=== PATIENT | female | born 1960 | race Caucasian/White ===

== ENCOUNTER → 2018-09-14 09:07 | Outpatient (CLI) | payer OTHER, BC, SELFPAY ==
[2018-09-14 11:19] LABS: ALB/GLOB Ratio 0.9 RATIO (0.9-2.4); AST(SGOT) 71 U/L (15-37); Alanine Aminotransfer ALT/SGPT 135 U/L (13-56); Albumin, Serum 3.8 g/dL (3.2-5.0); Alkaline Phosphatase 71 U/L (45-117); Anion Gap 7 (5-15); BUN 14 mg/dL (7-18); BUN/Creat Ratio 15.9 RATIO (10-20); Calcium,Total 9.4 mg/dL (8.5-10.1); Chloride 103 mmol/L (98-107); Creatinine, Serum 0.88 mg/dL (0.55-1.02); EST Glomerular Filtration Rate 70 mL/min (>60); Est Glom Filt Rate - Afr Amer 84 mL/min (>60); Globulin 4.4 g/dL (2.2-4.2); Glucose 167 mg/dL (74-106); Potassium 3.8 mmol/L (3.5-5.1); Protein, Total 8.2 g/dL (6.4-8.2); Sodium Level 140 mmol/L (136-145)
== END ==
PROVIDERS: Family Provider Internal Medicine; PCP Internal Medicine; Referring Provider Internal Medicine; Visit Provider Internal Medicine
DX: E11.65 Type 2 diabetes mellitus with hyperglycemia (principal)
CPT/HCPCS: 36415; 80053; 83036

== ENCOUNTER → 2018-09-24 09:02 | Outpatient (CLI) | payer OTHER, BC, SELFPAY ==
--- NOTE | 2018-09-24 09:04 | US_ITS ---
STUDY: ABDOMINAL ULTRASOUND - RIGHT UPPER QUADRANT REASON FOR VISIT: Female, 58 years old. Elevated liver function tests. TECHNIQUE: Ultrasound evaluation of the right upper quadrant was performed with real-time and static rodríguez-scale imaging. TECHNICAL QUALITY: Limited. Examination limited due to a combination of factors including obesity and bowel gas. COMPARISON: None. FINDINGS: Liver: The liver measures 16.3 cm. There is increased echogenicity consistent with fatty infiltration. The bile ducts are within normal limits. There is hepatic color flow. The direction of portal flow is hepatopetal. There is no demonstrated mass lesion. Gallbladder: Normal distended gallbladder. The gallbladder wall measures 2 mm. There is a negative sonographic Conti's sign. There is no pericholecystic fluid. There are no gallstones. Common Bile Duct (C.B.D.): The common bile duct measures 3.4 mm. Pancreas: Normal size of the head, body and tail of the pancreas. There is normal echogenicity of the pancreas. There is no demonstrated pancreatic mass or cyst. Right Kidney: Normal size of the right kidney. Normal renal cortex. There is no demonstrated renal mass or cyst. There is no right hydronephrosis. US/Abdomen Limited IMPRESSION: Fatty liver. Otherwise negative. Electronically Signed: Sarbjit Ji MD at 17:11 EDT , Service support ,
== END ==
PROVIDERS: Family Provider Internal Medicine; PCP Internal Medicine; Referring Provider Physician Assistant Medical; Visit Provider Physician Assistant Medical
DX: R79.89 Other specified abnormal findings of blood chemistry (principal)
CPT/HCPCS: 76705

== ENCOUNTER → 2018-10-30 10:18 | Outpatient (CLI) | payer OTHER, BC, SELFPAY ==
[2018-10-30 12:42] LABS: Erythrocyte Sedimentation Rate 13 mm/hr (0-30)
[2018-10-30 12:44] LABS: Absolute Lymphocyte Count 1.88 X10^3/uL (0.83-4.51); Basophil# 0.03 X10^3/uL; Basophil% 0.5 % (0-1); Eosinophil# 0.05 X10^3/uL; Eosinophils% 0.8 % (0-5); Hematocrit 45.4 % (37-47); Hemoglobin 14.8 g/dL (12.0-15.0); Lymphocyte # 1.88 X10^3/ul (4.0); Lymphocyte % 29.2 % (19-41); Mean Corp Hgb Conc 32.6 g/dL (32-36); Mean Corpuscular Hgb 30.3 pg (27.0-32.0); Mean Corpuscular Volume 92.8 fL (81-99); Mean Platelet Vol. 9.7 fl (6.2-12.0); Monocyte# 0.41 X10^3/uL; Monocyte% 6.4 % (0-10); NRBC Flagged by Analyzer 0 % (0-5); Neutrophil # 4.04 X10^3/uL (2.7-7.7); Neutrophil % 62.8 % (47-70); Platelet Count 269 K/mm3 (150-450); RBC Distribution Width CV 13.2 % (11.6-14.6); RBC Distribution Width SD 44.4 fl (35.1-43.9); Red Blood Count 4.89 M/mm3 (4.2-5.4); White Blood Count 6.4 K/mm3 (4.4-11.0)
[2018-10-30 13:30] LABS: AST(SGOT) 47 U/L (15-37); Alanine Aminotransfer ALT/SGPT 105 U/L (13-56); Albumin, Serum 3.5 g/dL (3.2-5.0); Alkaline Phosphatase 71 U/L (45-117); Bilirubin, Direct < 0.05 mg/dL (0.00-0.30); Globulin 4.5 g/dL (2.2-4.2); Uric Acid 5.4 mg/dL (2.6-6.0)
[2018-10-31 06:07] LABS: HEPATITIS B SURFACE AG Negative (Negative); Hepatitis A IgM Antibody Negative (Negative); Hepatitis B Core AB IgM Negative (Negative)
[2018-11-02 13:50] LABS: Hep C Antibodies <0.1 s/co ratio (0.0-0.9)
[2018-11-04 10:35] LABS: ANTINUCLEAR ANTIBODIES DIRECT Positive (Negative); Anti-Mitochondrial AB <20.0 Units (0.0-20.0)
== END ==
PROVIDERS: Family Provider Internal Medicine; PCP Internal Medicine; Referring Provider Internal Medicine; Visit Provider Internal Medicine
DX: R94.5 Abnormal results of liver function studies (principal); R79.0 Abnormal level of blood mineral
CPT/HCPCS: 36415; 80074; 80076; 83516; 84550; 85025; 85652; 86038

== ENCOUNTER 2019-02-07 08:35 | Emergency (ER) | payer OTHER, BC, SELFPAY ==
[2019-02-07 08:35] VITALS: BP 165/65; PULSE 50; RESP 18; TEMP 37.6; O2SAT 95; BMI 34.0
--- NOTE | 2019-02-07 08:49 | RAD_ITS ---
STUDY: X-RAY CHEST REASON FOR EXAM: Female, 59 years old. Cough, 4 days TECHNIQUE: PA and lateral chest COMPARISON: CT chest 08/07/2018 FINDINGS: Clear lungs, normal cardiomediastinal silhouette, braydon and pleural margins, no acute osseous or upper abdominal process. RAD/Chest PA and Lateral IMPRESSION: No acute cardiopulmonary process. Electronically Signed: Abraham Dinero MD at 9:48 EST Tel , Service support ,
--- NOTE | 2019-02-07 08:49 | EKG12_ITS ---
Test Reason : DYSRHYTHMIA Blood Pressure : / mmHG Vent. Rate : 091 BPM Atrial Rate : 091 BPM P-R Int : 172 ms QRS Dur : 090 ms QT Int : 368 ms P-R-T Axes : 019 021 026 degrees QTc Int : 452 ms Sinus rhythm with frequent Premature ventricular complexes Otherwise normal ECG Confirmed by ARMANI LOMBARDO, DEANN ([id number]), editor at large JENNI MONET ([id number]) on 02/08/2019 2:52:05 PM Referred By: LALI Confirmed By:DEANN LOMELI MD
--- NOTE | 2019-02-07 08:50 | ED.VIS.GEN ---
History of Present Illness Chief Complaint: Cold Sx Detail of Chief Complaint: Fever and congestion Informant: Patient Onset: Days - 3 days Context: Gradual Onset Current Severity: Moderate Maximum Severity: Moderate Narrative: Patient presents with fever and head and chest congestion that is been ongoing for the past 3 days. She is been coughing up white to yellow sputum. She feels that she is wheezing. She has no known history of lung disease. T-max has been 102.1. - Past Medical History (1) Hypertension Status: Chronic Past Medical History - Allergies and Home Meds Allergies/Adverse Reactions: Allergies zolmitriptan [From Zomig] Allergy (Verified 07/23/18 14:07) Unknown Primary Care Physician: Tina Dalton [Primary Care Provider] - Prior records reviewed: Yes Smoking Status: Never smoker Review of Systems General: Reports: Fever Eyes: Denies: Visual changes - bilaterally ENT: Reports: Rhinorrhea, Sore throat Respiratory: Reports: Dyspnea, Cough, Sputum, - - Wheezing Gastrointestinal: Denies: Abdominal pain, Nausea, Vomiting, Diarrhea Skin: Denies: Rash Neurological: Denies: Headache Hematologic: Denies: Easy bruising Allergy: Denies: Uticaria Physical Exam Vital Signs/Narrative: Vital Signs Temp Pulse Resp BP Pulse Ox 02/07/19 08:35 99.6 F H 50 L 18 165/65 H 95 Inital Vital Signs reviewed: Yes General: Well nourished, Well developed, - - Patient lying in bed with head of bed elevated approximately 45 degrees. She is speaking full sentences and is in no distress. Head: Normocephalic ENT: TM's clear, - - Posterior pharyngeal drainage and erythema. Uvula is midline. No significant tonsillar enlargement. Neck: - - Bilateral anterior cervical lymphadenopathy. Cardiovascular: Regular rate, Regular rhythm Respiratory: No distress, Wheezing - Expiratory wheezes with mild rhonchi noted. Abdomen: Soft, Nontender Extremities: Nontender, No edema Skin: Normal color, No rash Neurological: Alert, Oriented x3 Psychological: Normal affect Diagnostic/Tx/Re-eval Impressions Chest X-Ray 02/07/19 08:49 IMPRESSION: No acute cardiopulmonary process. Electronically Signed: Abraham Dinero MD at 9:48 EST Tel , Service support , 02/07/19 08:49 Chest PA and Lateral [RAD] Stat 02/07/19 09:15 Mucosa - Nasopharyngeal Influenza Types A,B Direct FA ([facility]) - Final Laboratory Results 02/07/19 02/07/19 09:00 09:00 WBC 9.4 RBC 5.07 Hgb 15.5 H Hct 46.3 MCV 91.3 MCH 30.6 MCHC 33.5 RDW Std Deviation 43.5 RDW Coeff of Delfina 13.0 Plt Count 248 MPV 9.8 Immature Gran % (Auto) 0.300 Neut % (Auto) 69.3 Lymph % (Auto) 17.8 L [place] % (Auto) 12.0 H Eos % (Auto) 0.2 Baso % (Auto) 0.4 Absolute Neuts (auto) 6.5 Absolute Lymphs (auto) 1.67 Nucleated RBC % 0 Sodium 136 Potassium 3.7 Chloride 102 Carbon Dioxide 26.0 Anion Gap 8 BUN 9 Creatinine 0.89 Estim Creat Clear Calc 69.37 Est GFR (MDRD) Af Amer 83 Est GFR (MDRD) Non-Af 69 BUN/Creatinine Ratio 10.1 Glucose 206 H Calcium 8.5 - EKG Initial EKG Interpretation: Sinus Rhythm - Sinus at 91 with frequent PVCs. No acute ST change. - Medical Decision Making When I initially saw the patient she was in a bigeminy pattern. EKG reveals this has improved, but she still having frequent PVCs. She was given a DuoNeb treatment. This did improve air movement and heart rate tolerated this well. She was given 2 additional albuterol treatments. On repeat evaluation heart rate is 115-120. She has improved air movement throughout and feels improved. She will be given prednisone here with a prescription for the same. She be given albuterol inhaler with spacer. She is given a work note for tomorrow night. ED Disposition - Plan for ED Patient: Disposition: Home or Assisted Living Diagnosis: Viral URI, Bronchospasm Instructions: BRONCHITIS with Wheezing (Adult) Prescriptions: Prednisone [Deltasone] 40 mg PO DAILY #10 tab Transmission Status: Pending to [facility]/pharmacy #[id number] Referrals: Tina Dalton [Primary Care Provider] - 1 Week if not improving
[2019-02-07] MEDS: 0.9% Normal Saline 1,000 ML 150 ML IV ×2 (08:57→10:08)
[2019-02-07 09:00] VITALS: BP 160/97; PULSE 50; RESP 18; TEMP 37.6; O2SAT 95
[2019-02-07 09:02] VITALS: PULSE 100; RESP 20; O2SAT 97
[2019-02-07] MEDS: Ipratropium/Albuterol Sulfate 3 ML AMPUL.NEB INHALATION (09:02)
[2019-02-07 09:21] LABS: Absolute Lymphocyte Count 1.67 X10^3/uL (0.83-4.51); Absolute Neutrophil Count 6.5 X10^3/uL (2.0-7.7); Basophil# 0.04 X10^3/uL; Basophil% 0.4 % (0-1); Eosinophil# 0.02 X10^3/uL; Eosinophils% 0.2 % (0-5); Hematocrit 46.3 % (37-47); Hemoglobin 15.5 g/dL (12.0-15.0); Lymphocyte # 1.67 X10^3/ul (4.0); Lymphocyte % 17.8 % (19-41); Mean Corp Hgb Conc 33.5 g/dL (32-36); Mean Corpuscular Hgb 30.6 pg (27.0-32.0); Mean Corpuscular Volume 91.3 fL (81-99); Mean Platelet Vol. 9.8 fl (6.2-12.0); Monocyte# 1.12 X10^3/uL; NRBC Flagged by Analyzer 0 % (0-5); Neutrophil # 6.48 X10^3/uL (2.7-7.7); Neutrophil % 69.3 % (47-70); Platelet Count 248 K/mm3 (150-450); RBC Distribution Width SD 43.5 fl (35.1-43.9); Red Blood Count 5.07 M/mm3 (4.2-5.4); White Blood Count 9.4 K/mm3 (4.4-11.0)
[2019-02-07 09:30] LABS: Anion Gap 8 (5-15); BUN 9 mg/dL (7-18); BUN/Creat Ratio 10.1 RATIO (10-20); Calcium,Total 8.5 mg/dL (8.5-10.1); Chloride 102 mmol/L (98-107); Creatinine, Serum 0.89 mg/dL (0.55-1.02); EST Glomerular Filtration Rate 69 mL/min (>60); Est Glom Filt Rate - Afr Amer 83 mL/min (>60); Estimated Creatinine Clearance 69.37 ml/min; Glucose 206 mg/dL (74-106); Potassium 3.7 mmol/L (3.5-5.1); Sodium Level 136 mmol/L (136-145)
[2019-02-07] MEDS: Albuterol 2.5 MG/3 ML VIAL.NEB. INHALATION ×2 (09:32)
[2019-02-07] MEDS: predniSONE 20 MG Tablet 60 MG PO (10:02)
[2019-02-07 10:09] VITALS: BP 144/82; PULSE 120; RESP 18; O2SAT 96
[2019-02-07 10:50] VITALS: BP 137/78; PULSE 112; RESP 18; O2SAT 94
== END 2019-02-07 10:56 | disposition home or self-care (01) ==
PROVIDERS: Emergency Provider Emergency Medicine; Family Provider Internal Medicine; PCP Internal Medicine
DX: J06.9 Acute upper respiratory infection, unspecified (principal); J98.01 Acute bronchospasm; I10 Essential (primary) hypertension
CPT/HCPCS: 71046; 80048; 85025; 87804; 93005; 94640; 96360; 96361; 99251; 99285; J7030; G0463

== ENCOUNTER → 2019-09-27 10:51 | Outpatient (CLI) | payer OTHER, BC, SELFPAY ==
[2019-02-09 15:33] VITALS: BMI 34.0
[2019-09-27 11:38] LABS: Absolute Lymphocyte Count 1.88 X10^3/uL (0.83-4.51); Absolute Neutrophil Count 3.1 X10^3/uL (2.0-7.7); Basophil# 0.05 X10^3/uL; Basophil% 0.9 % (0-1); Eosinophil# 0.09 X10^3/uL; Eosinophils% 1.6 % (0-5); Hematocrit 42.9 % (37-47); Hemoglobin 14.2 g/dL (12.0-15.0); Lymphocyte # 1.88 X10^3/ul (4.0); Lymphocyte % 33.5 % (19-41); Mean Corp Hgb Conc 33.1 g/dL (32-36); Mean Corpuscular Hgb 30.7 pg (27.0-32.0); Mean Corpuscular Volume 92.9 fL (81-99); Mean Platelet Vol. 10.1 fl (6.2-12.0); Monocyte# 0.45 X10^3/uL; NRBC Flagged by Analyzer 0 % (0-5); Neutrophil # 3.14 X10^3/uL (2.7-7.7); Neutrophil % 55.8 % (47-70); Platelet Count 323 K/mm3 (150-450); RBC Distribution Width CV 12.8 % (11.6-14.6); RBC Distribution Width SD 43.6 fl (35.1-43.9); Red Blood Count 4.62 M/mm3 (4.2-5.4); White Blood Count 5.6 K/mm3 (4.4-11.0)
[2019-09-27 11:57] LABS: Microalbumin,Random Urine 7.7 mg/L (NO RANGE EST.); Microalbumin:Creatinine Ratio 3.8 mg/g CRE (<30 mg/g CRE)
[2019-09-27 12:03] LABS: Hemoglobin A1c 7.7 % (3.8-5.6)
[2019-09-27 12:34] LABS: ALB/GLOB Ratio 0.9 RATIO (0.9-2.4); AST(SGOT) 33 U/L (15-37); Alanine Aminotransfer ALT/SGPT 60 U/L (13-56); Albumin, Serum 3.9 g/dL (3.2-5.0); Alkaline Phosphatase 72 U/L (45-117); Anion Gap 5 (5-15); BUN 18 mg/dL (7-18); BUN/Creat Ratio 20.5 RATIO (10-20); Calcium,Total 9.2 mg/dL (8.5-10.1); Chloride 106 mmol/L (98-107); Cholesterol 198 mg/dL (200); Creatinine, Serum 0.88 mg/dL (0.55-1.02); EST Glomerular Filtration Rate 70 mL/min (>60); Est Glom Filt Rate - Afr Amer 84 mL/min (>60); Globulin 4.5 g/dL (2.2-4.2); Glucose 142 mg/dL (74-106); High Density Lipoprotein 36 mg/dL; Potassium 3.7 mmol/L (3.5-5.1); Protein, Total 8.4 g/dL (6.4-8.2); Rheumatoid Factor < 10.0 IU/mL (<15); Sodium Level 139 mmol/L (136-145); T4 Free Direct 0.89 ng/dL (0.76-1.46); Thyroid Stim Hormone (TSH) 1.27 uIU/mL (0.358-3.74); Triglycerides 127 mg/dL; Very Low Density Lipoprotein 25 mg/dL (5-40)
[2019-09-28 14:12] LABS: ANTINUCLEAR ANTIBODIES DIRECT Negative (Negative); Anti-dsDNA Ab <1 IU/mL (0-9)
[2019-09-29 03:48] LABS: CCP IgG Antibodies 9 units (0-19)
== END ==
PROVIDERS: Family Provider Internal Medicine; PCP Internal Medicine; Referring Provider Physician Assistant Medical; Visit Provider Physician Assistant Medical
DX: E11.9 Type 2 diabetes mellitus without complications (principal)
CPT/HCPCS: 36415; 80053; 80061; 82043; 82570; 83036; 84439; 84443; 85025; 86038; 86200; 86225; 86431

== ENCOUNTER → 2020-04-05 08:00 | Outpatient (CLI) | payer OTHER, BC, SELFPAY ==
[2019-02-09 15:33] VITALS: BMI 34.0
[2020-04-05 11:15] LABS: ALB/GLOB Ratio 0.8 RATIO (0.9-2.4); AST(SGOT) 23 U/L (15-37); Alanine Aminotransfer ALT/SGPT 37 U/L (13-56); Albumin, Serum 3.5 g/dL (3.2-5.0); Alkaline Phosphatase 77 U/L (45-117); Anion Gap 6 (5-15); BUN 18 mg/dL (7-18); BUN/Creat Ratio 22.5 RATIO (10-20); Calcium,Total 8.7 mg/dL (8.5-10.1); Chloride 103 mmol/L (98-107); EST Glomerular Filtration Rate 77 mL/min (>60); Est Glom Filt Rate - Afr Amer 93 mL/min (>60); Globulin 4.5 g/dL (2.2-4.2); Glucose 154 mg/dL (74-106); Potassium 3.3 mmol/L (3.5-5.1); Sodium Level 138 mmol/L (136-145)
[2020-04-06 14:42] LABS: Hemoglobin A1c 6.8 % (3.8-5.6)
== END ==
PROVIDERS: PCP Internal Medicine; Referring Provider Internal Medicine; Visit Provider Internal Medicine
DX: E11.9 Type 2 diabetes mellitus without complications (principal)
CPT/HCPCS: 36415; 80053; 83036

== ENCOUNTER → 2020-09-27 10:58 | Outpatient (CLI) | payer OTHER, BC, SELFPAY ==
[2019-02-09 15:33] VITALS: BMI 34.0
[2020-09-27 12:06] LABS: Absolute Lymphocyte Count 2.39 X10^3/uL (0.83-4.51); Absolute Neutrophil Count 3.7 X10^3/uL (2.0-7.7); Basophil# 0.04 X10^3/uL; Basophil% 0.6 % (0-1); Eosinophil# 0.09 X10^3/uL; Eosinophils% 1.3 % (0-5); Hematocrit 44.1 % (37-47); Hemoglobin 14.3 g/dL (12.0-15.0); Lymphocyte # 2.39 X10^3/ul (0.83-4.51); Mean Corp Hgb Conc 32.4 g/dL (32-36); Mean Corpuscular Volume 92.6 fL (81-99); Mean Platelet Vol. 9.5 fl (6.2-12.0); Monocyte# 0.55 X10^3/uL; Monocyte% 8.1 % (0-10); NRBC Flagged by Analyzer 0 % (0-5); Neutrophil # 3.74 X10^3/uL (2.7-7.7); Neutrophil % 54.7 % (47-70); Platelet Count 294 K/mm3 (150-450); RBC Distribution Width CV 13.3 % (11.6-14.6); RBC Distribution Width SD 45.3 fl (35.1-43.9); Red Blood Count 4.76 M/mm3 (4.2-5.4); White Blood Count 6.8 K/mm3 (4.4-11.0)
[2020-09-27 12:25] LABS: Hemoglobin A1c 6.7 % (3.8-5.6)
[2020-09-27 12:39] LABS: Albumin, Serum 3.5 g/dL (3.2-5.0); BUN 12 mg/dL (7-18); BUN/Creat Ratio 16.5 RATIO (10-20); Creatinine, Serum 0.73 mg/dL (0.55-1.02); EST Glomerular Filtration Rate 86 mL/min (>60); Est Glom Filt Rate - Afr Amer 104 mL/min (>60); Glucose 147 mg/dL (74-106)
[2020-09-27 12:40] LABS: ALB/GLOB Ratio 0.8 RATIO (0.9-2.4); AST(SGOT) 21 U/L (15-37); Alanine Aminotransfer ALT/SGPT 48 U/L (13-56); Alkaline Phosphatase 72 U/L (45-117); Anion Gap 4 (5-15); Calcium,Total 8.5 mg/dL (8.5-10.1); Chloride 106 mmol/L (98-107); Cholesterol 243 mg/dL (200); Globulin 4.5 g/dL (2.2-4.2); High Density Lipoprotein 40 mg/dL; Potassium 3.6 mmol/L (3.5-5.1); Sodium Level 139 mmol/L (136-145); Thyroid Stim Hormone (TSH) 1.77 uIU/mL (0.358-3.74); Triglycerides 156 mg/dL; Very Low Density Lipoprotein 31 mg/dL (5-40)
== END ==
PROVIDERS: PCP Internal Medicine; Referring Provider Physician Assistant Medical; Visit Provider Physician Assistant Medical
DX: Z00.00 Encounter for general adult medical examination without abnormal findings (principal); E11.9 Type 2 diabetes mellitus without complications
CPT/HCPCS: 36415; 80053; 80061; 82043; 83036; 84443; 85025

== ENCOUNTER 2020-11-06 16:16 | Emergency (ER) | payer OTHER, BC, SELFPAY ==
[2020-11-06 16:16] VITALS: BP 164/106; PULSE 88; RESP 14; TEMP 36.8; O2SAT 97; BMI 31.8
--- NOTE | 2020-11-06 17:32 | EX.ED.UPPERE ---
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 More uncomfortable now with movement or lifting. This is a workers comp claim. She denies any back or neck surgeries in the past. Prior similar symptoms: No Recent Illness/Hospitalization: No PFSH PFSH Home Medications atenolol 50 mg PO DAILY 11/06/20 [History Last Taken Unknown] hydrochlorothiazide 12.5 mg PO DAILY 11/06/20 [History Last Taken Unknown] lisinopril 20 mg PO BID 11/06/20 [History Last Taken Unknown] metaxalone [Skelaxin] 800 mg PO TID 7 Days #21 tab 11/06/20 [Rx Last Taken Unknown] potassium chloride [Klor-Con M20] 20 meq PO DAILY 11/06/20 [History Last Taken Unknown] Allergy/AdvReac Type Severity Reaction Status Date / Time zolmitriptan [From Zomig] Allergy Unknown Verified 11/06/20 16:21 Social History Smoking Status: Never smoker ROS ROS ED ROS Narrative Denies recent illness. Review of Systems ROS Unobtainable: Denies due to encephalopathy Constitutional Constitutional ED: Denies chills or frequent falls Eyes Eyes: Denies change in vision ENT ENT ED: Denies ear pain or sore throat Cardiovascular Cardiovascular: Denies chest pain or palpitations Respiratory/Chest Respiratory/Chest: Denies cough or dyspnea Gastrointestinal Gastrointestinal: Denies abdominal pain, diarrhea, nausea or vomiting Genitourinary Genitourinary ED: Denies dysuria or hematuria Musculoskeletal Musculoskeletal: Reports back pain and neck pain; Denies myalgias Integumentary Denies rash Neurologic Neurologic: Denies headache(s) Psychiatric Psychiatric: Denies depression Endocrine Endocrinology: Denies polyuria Hematologic/Lymphatic Hematologic/Lymphatic: Denies easy bruising Allergic/Immunologic Allergic/Immunologic ED: Denies urticaria EXAM Physical Exam Narrative Exam Narrative: 58-year-old female no acute distress. Vital signs stable initial blood pressure elevated 164/106. HEENT exam unremarkable. Neck no lymphadenopathy no meningismus. Lungs clear auscultation bilaterally. Heart regular rhythm no murmur. Abdomen soft nontender. Moving all 4 extremities. Neurovascular intact. Back tenderness in the left posterior shoulder and trapezius area and also in the left lower paravertebral musculature. Consistent with myofascial strains. Spine nontender. Neurologic exam no cauda equina. No weakness. Const Vital Signs: 11/06/20 16:16 Temperature 98.2 F Temperature Source Temporal Pulse Rate 88 Respiratory Rate 14 Blood Pressure 164/106 H Blood Pressure Mean 125 Pulse Ox 97 Oxygen Delivery Method Room Air HEENT Reports moist mucous membranes normocephalic and atraumatic; Negative for trauma or tenderness Eyes PERRL and EOMs intact bilaterally Neck full ROM and supple General: Negative for tenderness Chest Wall inspection of chest normal and palpation of chest normal Resp normal respiratory effort and clear to auscultation bilaterally Effort and Inspection: Negative for pain with movement Auscultation: Negative for rales or rhonchi Cardio regular rate, regular rhythm, S1 normal heart sound, S2 normal heart sound and no murmurs GI non-tender, non-distended and no masses Auscultation: normoactive bowel sounds Palpation: soft; Negative for tender or guarding Back/Spine no CVA tenderness Back/Spine Narrative: Left posterior shoulder trapezius tenderness and paravertebral soft tissue tenderness to the lower back both consistent with myofascial strains. Extremity normal to inspection; Negative for full ROM General Extremety ED: Yes edema General Extremity: edema Neuro oriented x3, CN's II-XII intact bilaterally, moves all extremities and no focal motor deficits Sensorium / Orientation: alert, oriented to person, oriented to place and oriented to time; Negative for orientation impaired, lethargic or stuporous Psych mental status grossly normal Skin Lesions: no lesions Rashes: no rashes MDM MDM MDM Narrative Medical decision making narrative: 60-year-old female with myofascial strain of her left shoulder and left lower back. Worker's Comp. injury. Will be written off work the next 2 days. Started on Skelaxin. Discharge Plan Triage Chief Complaint: Upper Extremity Injury ED Provider: Chris Santos Dx/Rx/DC Orders Clinical Impression: Strain of left trapezius muscle, Acute lumbar myofascial strain Instructions: Treating?Strains and Sprains, Understanding Lumbosacral Strain Prescriptions: New metaxalone [Skelaxin] 800 mg tablet 800 mg PO TID 7 Days Qty: 21 RF: 0 No Action lisinopril 20 mg tablet 20 mg PO BID RF: 0 potassium chloride [Klor-Con M20] 20 mEq tablet,ER particles/crystals 20 meq PO DAILY RF: 0 atenolol 50 mg tablet 50 mg PO DAILY RF: 0 hydrochlorothiazide 12.5 mg tablet 12.5 mg PO DAILY RF: 0 Primary Care Provider: Tina Dalton Referrals: Tina Dalton MD [Primary Care Provider] - 1 Week if not improving Activity Restrictions/Additional Instructions: Skelaxin 1 pill 3-4 times a day for 1 week. Hot shower warm bath to the shoulder and back to relax the muscles. Massage. Massage gun. Motrin for pain and inflammation. Follow-up if not improving. Off work next 2 days. Light duty for 1 week no lifting greater than 10 pounds. Disposition Disposition: Home, Self Care
== END 2020-11-06 18:00 | disposition home or self-care (01) ==
LOC: ED 17:46
PROVIDERS: Emergency Provider Emergency Medicine; PCP Internal Medicine
DX: S46.812A Strain of other muscles, fascia and tendons at shoulder and upper arm level, left arm, initial encounter (principal); S39.012A Strain of muscle, fascia and tendon of lower back, initial encounter; X58.XXXA Exposure to other specified factors, initial encounter; Z79.899 Other long term (current) drug therapy
CPT/HCPCS: 99282

== ENCOUNTER 2020-11-15 09:11 | Outpatient (RCR) | payer OTHER, BC, SELFPAY | END 2020-12-07 23:59 | LOC: LABSPEC 09:11 | PROVIDERS: PCP Internal Medicine; Visit Provider Family Medicine Geriatric Medicine | DX: Z03.818 Encounter for observation for suspected exposure to other biological agents ruled out (principal) | CPT/HCPCS: 87426 ==

== ENCOUNTER → 2020-11-24 07:49 | Outpatient (CLI) | payer OTHER, SELFPAY ==
--- NOTE | 2020-11-24 07:55 | MRI_ITS ---
STUDY: MRI LEFT SHOULDER REASON FOR EXAM: Female, 60 years old. Left shoulder strain. Work related injury. TECHNIQUE: Standardized fat and water weighted pulse sequences were obtained in all 3 orthogonal planes. COMPARISON: None. FINDINGS: Mild supraspinatus and infraspinatus tendinosis without tendon tear. Mild subscapularis tendinosis. Normal teres minor tendon. No muscle atrophy. Normal intracapsular long biceps tendon. Biceps labral anchor intact. Mild labral degeneration with tiny superior labral tear (axial image 9 and coronal images 13 and 14 series 4). Capsular ligaments intact. Normal rotator cuff interval. Glenohumeral joint fluid physiologic. Mild/moderate acromioclavicular joint arthrosis. Mild anterior interval narrowing. No acute fracture, dislocation or bone obstruction. No subacromial subdeltoid bursitis. Glenohumeral cartilage preserved. Intact coracohumeral and coracoacromial ligaments. Normal quadrilateral space. Normal axillary space. Normal deltoid muscle. Normal trapezius muscle. MRI/Upper Ext Joint Only(Routine) IMPRESSION: Mild rotator cuff tendinosis without tear Labral degeneration with tiny superior labral tear Mild/moderate AC joint arthrosis with early anterior interval narrowing Electronically Signed: Dru Tidwell DO at 9:22 EDT Tel , Service support ,
== END ==
PROVIDERS: PCP Internal Medicine; Referring Provider Physician Assistant Surgical; Visit Provider Physician Assistant Surgical
DX: S46.812A Strain of other muscles, fascia and tendons at shoulder and upper arm level, left arm, initial encounter (principal)
CPT/HCPCS: 73221

== ENCOUNTER 2021-01-02 07:37 | Emergency (ER) | payer OTHER, BC, SELFPAY ==
[2021-01-02 07:38] VITALS: BP 95/80; PULSE 99; RESP 18; TEMP 36.6; O2SAT 97; BMI 32.5
--- NOTE | 2021-01-02 08:11 | EDS_ITS ---
HPI History of Present Illness Chief Complaint: Back Detail of Chief Complaint: Back pain that has been worse over the last 3 days Informant: patient Narrative Narrative: Patient presents to the emergency department complaint of lower back pain that has worsened over the last 3 days. Patient states she had an injury at work and is on Workmen's Comp. currently. Patient's initial injury was December 06. Patient was doing some pulling at work when she injured her back. 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 Patient states that she worked an overnight shift 4 nights ago and the following morning started having increased discomfort. She describing spasm and pain mostly to the left side of her low back. She at times will have some radiation of the pain into the left hip but no pain down the leg. She denies any numbness or tingling in the extremity. She denies weakness of the extremities. She denies change in bowel or bladder function. Prior similar symptoms: Yes and With Prior Back [facility] Medical History Hypertension Home Medications atenolol 50 mg PO DAILY 11/06/20 [History Last Taken Unknown] hydrochlorothiazide 12.5 mg PO DAILY 11/06/20 [History Last Taken Unknown] lisinopril 20 mg PO BID 11/06/20 [History Last Taken Unknown] potassium chloride [Klor-Con M20] 20 meq PO DAILY 11/06/20 [History Last Taken Unknown] aspirin 81 mg chewable tablet 81 mg PO DAILY 11/07/20 [History Last Taken Unknown] calcium carbonate 500 mg calcium (1,250 mg) tablet 500 mg PO DAILY 12/06/20 [History Last Taken Unknown] multivitamin 1 tab PO DAILY 12/06/20 [History Last Taken Unknown] diazepam [Valium] 2 mg PO TID PRN #20 tab 01/02/21 [Rx Last Taken Unknown] hydrocodone-acetaminophen 1 tab PO Q4H PRN PRN 3 Days #15 tablet 01/02/21 [Rx Last Taken Unknown] Allergy/AdvReac Type Severity Reaction Status Date / Time zolmitriptan [From Zomig] Allergy Palpitation Verified 12/21/20 09:10 s Family History (Updated 12/06/20 @ 08:56 by Sharon Ly) Mother Thyroid disorder Father Thyroid disorder Family history of CABG Surgical History Hx of tonsillectomy S/P breast biopsy Social History (Updated 12/06/20 @ 08:58 by Sharon Ly) household members: none housing: house current occupational status: employed 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 [employer] pets and animals: No Smoking Status: Never smoker alcohol intake: current alcohol intake frequency: holidays/special occasions only substance use type: does not use caffeine: Yes what type of physical activity do you participate in: none seatbelt use: always do you feel safe at home: Yes ROS ROS ED Constitutional Constitutional ED: Reports systems reviewed and no addt'l complaints, except as documented; Denies body ache(s), change in weight or chills Eyes Eyes: Denies acute decrease in peripheral vision, change in vision, double vision or loss of vision ENT ENT ED: Reports none; Denies ear pain, lip swelling, loss taste/smell, neck pain, otalgia or sore throat Cardiovascular Cardiovascular: Reports none; Denies abdominal pain, chest pain with activity, leg edema, lightheadedness, palpitations, rapid heart rate or syncope Respiratory/Chest Respiratory/Chest: Reports none; Denies change in mental status, dry cough, dyspnea, hemoptysis, shortness of breath at rest or shortness of breath with exertion Gastrointestinal Gastrointestinal: Reports none; Denies abdominal pain, change in stool character, diarrhea, hematemesis, hematochezia, melena, rectal bleeding or vomiting Genitourinary Genitourinary ED: Reports none; Denies abdominal discomfort, anuria, dysuria, genital pain or polyuria Musculoskeletal Musculoskeletal: Reports none and back pain; Denies arthralgias, difficulty walking, extremity pain, muscle weakness or myalgias Integumentary Reports none; Denies abscess or rash Neurologic Neurologic: Reports none; Denies abnormal gait, confusion, focal weakness, frequent falls, headache(s), loss of vision, numbness, paresthesias, radicular pain, vertigo or weakness Psychiatric Psychiatric: Reports systems reviewed and no addt'l complaints, except as documented and none; Denies behavioral changes, confusion, difficulty concentrating, hallucinations, suicidal ideation, tactile hallucinations or visual hallucinations Endocrine Endocrinology: Denies none, cold intolerance, excessive sweating, fatigue or heat intolerance Hematologic/Lymphatic Hematologic/Lymphatic: Reports none; Denies anemia, easy bleeding or easy bruising Allergic/Immunologic Allergic/Immunologic ED: Denies as per HPI, none, lip swelling, mouth swelling, throat swelling, tongue swelling or hives EXAM Physical Exam Const Vital Signs: 01/02/21 07:38 Temperature 97.8 F Temperature Source Temporal Pulse Rate 99 Respiratory Rate 18 Blood Pressure 95/80 Blood Pressure Mean 85 Pulse Ox 97 Oxygen Delivery Method Room Air Positive well nourished and well developed General Appearance ED: well developed and NAD HEENT Reports TM's clear and moist mucous membranes normocephalic and atraumatic; Negative for trauma or tenderness Tympanic Membrane ED: Yes TM's clear Eyes PERRL and EOMs intact bilaterally General Eye ED: Negative for pale conjunctiva or scleral icterus Neck no lymphadenopathy, supple and no JVD General: Negative for tenderness Chest Wall inspection of chest normal and palpation of chest normal Chest: Negative for tenderness Resp normal respiratory effort and clear to auscultation bilaterally Effort and Inspection: Negative for respiratory distress or pain with movement Auscultation: Negative for rhonchi, wheezes or diminished lung sounds Cardio regular rate, regular rhythm, S1 normal heart sound, S2 normal heart sound and no murmurs Peripheral Pulses: pulses 2+ throughout GI normal to inspection, nondistended, normoactive bowel sounds, soft to palpation, non-tender, non-distended and no masses Back/Spine no CVA tenderness Back/Spine Narrative: Patient has tenderness palpation over the left lumbar paraspinal musculature that seems to reproduce her pain. She has negative straight leg raises. Normal sensation to light touch. Deep tendon reflexes plus 2 out of 4 bilaterally at the patella and Achilles. Patient has normal L5 extension bilaterally. No significant tenderness over the midline of the thoracic or lumbar spine noted. Extremity normal to inspection General Extremety ED: Negative for edema General Extremity: Negative for edema Neuro oriented x3, CN's II-XII intact bilaterally, no sensory deficits noted and gait normal Sensorium / Orientation: awake, alert, oriented to person, oriented to place and oriented to time Motor Exam: strength 5/5 throughout and strength abnormal Psych mental status grossly normal Skin no rashes or lesions noted and no wounds MDM MDM MDM Narrative Medical decision making narrative: Patient will be written off work for 2 days. Patient will be given a prescription for [place] and Valium. Patient advised to follow-up with her primary care physician or Workmen's Comp. physician within next 3 to 5 days. Patient currently undergoing physical therapy and Occupational Therapy. I do not feel imaging is indicated at this time. There are no red flag symptoms of cauda equina. Patient has not had direct trauma therefore I suspect this is likely all soft tissue injury. Discharge Plan Triage Chief Complaint: Back ED Provider: Sarita Hall Dx/Rx/DC Orders Clinical Impression: Back pain Instructions: ED Back Sprain/Strain Prescriptions: New hydrocodone-acetaminophen [hydrocodone-acetaminophen] 1 TABLET tablet 1 tab PO Q4H PRN PRN (Reason: Pain) 3 Days Qty: 15 RF: 0 diazepam [Valium] 2 mg tablet 2 mg PO TID PRN (Reason: muscle spasm) Qty: 20 RF: 0 No Action aspirin 81 mg tablet,chewable 81 mg PO DAILY RF: 0 multivitamin [Multiple Vitamins] Tablet 1 tab PO DAILY RF: 0 calcium carbonate [Calcium 500] 500 mg calcium (1,250 mg) tablet 500 mg PO DAILY RF: 0 lisinopril 20 mg tablet 20 mg PO BID RF: 0 potassium chloride [Klor-Con M20] 20 mEq tablet,ER particles/crystals 20 meq PO DAILY RF: 0 atenolol 50 mg tablet 50 mg PO DAILY RF: 0 hydrochlorothiazide 12.5 mg tablet 12.5 mg PO DAILY RF: 0 Primary Care Provider: Tina Dalton Referrals: Tina Dalton MD [Primary Care Provider] - 3-5 Days Disposition Disposition: Home, Self Care
== END 2021-01-02 08:26 | disposition home or self-care (01) ==
PROVIDERS: Emergency Provider Emergency Medicine; PCP Internal Medicine
DX: M54.50 Low back pain, unspecified (principal)
CPT/HCPCS: 99282

== ENCOUNTER 2021-01-12 08:00 | Outpatient (RCR) | payer OTHER, SELFPAY ==
--- NOTE | 2020-12-05 09:41 | HP.PTEVAL_ITS ---
Patient's Visit Information LINK MAYER is a 60 year old F referred to Physical Therapy by YUAN Duran with a diagnosis of Low back strain and L shoulder strain. Date of Evaluation: 12/05/20 Physical Therapist: Doroteo Perales, PT, ATC - Visit Plan Frequency: 2-3x /Week Duration: 4-6 Weeks Plan: L shoulder: overhead pulleys, rotator cuff strengthening, scap stab ex's, UBE, and HEP. CP for pain. L/S: Postural edu, ext based ex's as rochelle, core stab ex's, and HEP. IFC with CP for pain - Subjective Pt reports she injured her L shoulder when attempting to transfer a patient in bed one month ago. Pt notes she is R hand dominant. Pt reports she continues to experience increased pain in her L shoulder after working every day. 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 Pt reports she is on light duty which means she still has to perform her normal duties, but with more help. Pt reports she had an MRI one week ago which revealed a tear in her L shoulder. Pt reports she gets tingling and numbness in L shoulder intermittently that extends from the axilla to the tops of her fingers. No prior L shoulder injuries. Pt also complains of LBP that occurred on the same date while tranferring her pt in bed. Pt reports it is mostly an ache, but becomes a sharp pain at times. Pt also notes a pressure in her LBP. No Dx tests at this time for her LBP. Pt notes the lifting and bending activity she performs at work causes a lot of her pain. Pt also notes it is difficult to get out of bed due to pain. Pt reports she has sleep difficulty at this time secondary to both L shoulder and LBP. Pt reports she had L LE radiculopathy at first, but none for the past few days. Pt reports she has been able to experience a little relief with the use of hot packs and massotherapy. L shoulder pain is 6/10 at rest, increases to 9/10 at worst. LBP is 5/10 at rest, and increases to 7/10 at worst. - Pain L shoulder pain Pain Intensity (Out of 10): 6 Pain Intensity Range: 9 LBP Pain Intensity (Out of 10): 5 Pain Intensity Range: 7 - Objective Neuro: B UE and LE sensation is WNL to light touch. B bicepital and patellar reflex= 2/3. shoulder MMT: R UE is 5/5 throughout. L shoulder is 2-/5 and painful with all testing. shoulder ROM: R shoulder flex= 150, abd= 150, ER= 65, IR WNL; L shoulder flex= 30, abd= 30, ER= 0, and all movements are painful. Special tests: Unable to perform today secondary to pain and limited ROM. L/S ROM: Pt is severely limited with both flexion and extension of the L/S. Sidebending is WNL. LE MMT: L hip flex 4/5 and painful in the L/S. All other LE MMT 5/5 throughout. Repeated movements: Unable to perform secondary to pain - Balance/Special Test Scores Quick DASH Score: 59.0900 - Goals Goal 1:: Decrease LB and L shoulder pain x 50% to aid with sleep Goal Time Frame: 4-6 Weeks Goal 2:: Increase L shoulder flex and abd ROM x 60 degrees to aid with overhead lifting activity. Goal Time Frame: 4-6 Weeks Goal 3:: Increase L/S ROM to WNL to aid with work requirements Goal Time Frame: 4-6 Weeks Goal 4:: Increase L shoulder strength x 2 grades to aid with work requirements Goal Time Frame: 4-6 Weeks - Rehabilitation Potential Physical Therapy Diagnosis: Pt has L shoulder pain, weakness, and limited ROM secondary to L shoulder strain. Pt has LBP, limited L/S ROM, and difficulty with sleep secondary to L/S strain Rehabilitation Potential: Fair - Anticipated Interventions Patient/Client Instruction: Educate patient on: Condition, Plan of Care For the Purpose of:: To improve self management Therapeutic Exercise to Include: Strength training, Endurance training, Body mechanics, Postural training, Active ROM, Dynamic Lumbar Stabilization, Scapular Strength/Stabilization For the Purpose of:: To decrease pain, To increase ROM, To improve muscle performance and motor function IF ES: Yes Cryotherapy (ice pack, ice massage): Yes For the Purpose of:: To decrease pain Thank you for the opportunity to evaluate your patient. For Medicare and Medicare HMO plans, please review the plan of care and approve it. It will need to be FAXED BACK to us at [phone] for Medicare purposes. For Medicare only, by signing this I certify the plan of care. Please let me know if there are questions or concerns regarding this plan of care. Physician Signature: ____Date:
--- NOTE | 2021-03-26 10:43 | HP.PT.NRP ---
LINK MAYER was seen in my office for initial evaluation on 12/05/20. The following Plan of Care was established for this patient: Initial Frequency: 2-3x /Week Initial Duration: 4-6 Weeks Patient/Client Instruction: Educate patient on: Condition, Plan of Care For the Purpose of:: To improve self management Therapeutic Exercise to Include: Strength training, Endurance training, Body mechanics, Postural training, Active ROM, Dynamic Lumbar Stabilization, Scapular Strength/Stabilization For the Purpose of:: To decrease pain, To increase ROM, To improve muscle performance and motor function IF ES: Yes Cryotherapy (ice pack, ice massage): Yes For the Purpose of:: To decrease pain This patient was last seen in our office . Pertinent comments regarding their Physical therapy will appear below: Pt was treated for 8 PT visits for L shoulder and LBP through the date of 01/12/21. Pt has not returned today and is therefore discontinued at this time. At this point I will be discontinuing this patient from physical therapy. I would be happy to see this patient again in the future if found appropriate by the physician. Thank you! Doroteo Perales, PT, ATC Balance/Gait/Functional tests - Balance/Special Test Scores Quick DASH Score: [phone]
== END 2021-01-12 19:00 | disposition home or self-care (01) ==
LOC: PT 08:00
PROVIDERS: PCP Internal Medicine; Referring Provider Physician Assistant Surgical; Visit Provider Physician Assistant Surgical
DX: S39.012D Strain of muscle, fascia and tendon of lower back, subsequent encounter (principal); S46.812D Strain of other muscles, fascia and tendons at shoulder and upper arm level, left arm, subsequent encounter
CPT/HCPCS: 97014; 97110; 97161; 97530; G0283

== ENCOUNTER → 2021-02-02 06:51 | Outpatient (CLI) | payer OTHER, SELFPAY ==
--- NOTE | 2021-02-02 06:53 | MRI_ITS ---
STUDY: MRI LUMBAR SPINE WITHOUT CONTRAST REASON FOR EXAM: Female, 61 years old. lumbar strain TECHNIQUE: Standardized fat and water weighted pulse sequences were obtained in the sagittal and axial planes. COMPARISON: X-ray lumbar spine dated 11/07/2020 FINDINGS: Normal lumbar lordosis. There is no substantial scoliosis. Normal conus medullaris that terminates at the L1. L1-2: There is mild disc space narrowing and endplates spondylosis. Mild disc bulge and facet arthropathy without significant central canal or foraminal stenosis. L2-3: There is mild disc space narrowing and endplates spondylosis. Mild disc bulge and facet arthropathy without significant central canal stenosis. Mild right and mild left foraminal stenosis. L3-4: There is mild disc space narrowing and endplates spondylosis. Moderate disc bulge and mild facet arthropathy with mild central canal stenosis. Moderate right and moderate left foraminal stenosis. L4-5: There is mild disc space narrowing and endplates spondylosis. Mild disc bulge and mild foraminal arthropathy without significant central canal stenosis. Mild right and mild left foraminal stenosis. L5-S1: There is minimal disc space narrowing and endplate spondylosis. Mild disc bulge and mild facet arthropathy without significant central canal or foraminal stenosis. Normal visualized sacral ala. MRI/Spine Lumbar (Routine) IMPRESSION: L3/L4: Moderate right and moderate left foraminal stenosis. Electronically Signed: Kirk Hinton MD at 11:05 EST Tel , Service support ,
== END ==
PROVIDERS: PCP Internal Medicine; Visit Provider Physician Assistant Surgical
DX: S39.012A Strain of muscle, fascia and tendon of lower back, initial encounter (principal)
CPT/HCPCS: 72148

== ENCOUNTER 2021-02-21 03:30 | Outpatient (RCR) | payer OTHER, BC, SELFPAY | END 2021-03-09 23:59 | LOC: EMPH 03:30 | PROVIDERS: PCP Internal Medicine; Visit Provider Family Medicine Geriatric Medicine | DX: Z03.818 Encounter for observation for suspected exposure to other biological agents ruled out (principal) | CPT/HCPCS: 87426 ==

== ENCOUNTER 2021-04-02 19:43 | Outpatient (RCR) | payer OTHER, BC, SELFPAY | END 2021-04-09 23:59 | LOC: EMPH 19:43 | PROVIDERS: PCP Internal Medicine; Visit Provider Family Medicine Geriatric Medicine | DX: Z03.818 Encounter for observation for suspected exposure to other biological agents ruled out (principal) | CPT/HCPCS: 87426 ==

== ENCOUNTER 2021-06-14 07:44 | Outpatient (CLI) | payer OTHER, BC, SELFPAY ==
[2021-06-14 08:50] LABS: ALB/GLOB Ratio 0.8 RATIO (0.9-2.4); AST(SGOT) 72 U/L (15-37); Alanine Aminotransfer ALT/SGPT 135 U/L (13-56); Albumin, Serum 3.8 g/dL (3.2-5.0); Alkaline Phosphatase 87 U/L (45-117); Anion Gap 4 (5-15); BUN 21 mg/dL (7-18); BUN/Creat Ratio 21.1 RATIO (10-20); Calcium,Total 9.6 mg/dL (8.5-10.1); Chloride 103 mmol/L (98-107); Cholesterol 255 mg/dL (200); EST Glomerular Filtration Rate 60 mL/min (>60); Est Glom Filt Rate - Afr Amer 72 mL/min (>60); Globulin 4.5 g/dL (2.2-4.2); Glucose 269 mg/dL (74-106); High Density Lipoprotein 36 mg/dL; Potassium 3.9 mmol/L (3.5-5.1); Protein, Total 8.3 g/dL (6.4-8.2); Sodium Level 136 mmol/L (136-145); Triglycerides 166 mg/dL; Very Low Density Lipoprotein 33 mg/dL (5-40)
[2021-06-14 08:54] LABS: Hemoglobin A1c 10.9 % (3.8-5.6)
== END 2021-06-14 23:59 | disposition home or self-care (01) ==
LOC: LAB 07:45
PROVIDERS: PCP Internal Medicine; Referring Provider Physician Assistant Medical; Visit Provider Physician Assistant Medical
DX: I10 Essential (primary) hypertension (principal); E11.9 Type 2 diabetes mellitus without complications; E78.2 Mixed hyperlipidemia
CPT/HCPCS: 36415; 80053; 80061; 83036

== ENCOUNTER → 2022-08-13 | Outpatient (CLI) | payer OTHER, BC, SELFPAY ==
[2022-08-13 09:51] LABS: Absolute Lymphocyte Count 1.71 X10^3/uL (0.83-4.51); Absolute Neutrophil Count 4.1 X10^3/uL (2.0-7.7); Basophil# 0.04 X10^3/uL; Basophil% 0.6 % (0-1); Eosinophil# 0.07 X10^3/uL; Eosinophils% 1.1 % (0-5); Hematocrit 45.6 % (37-47); Hemoglobin 14.7 g/dL (12.0-15.0); Lymphocyte # 1.71 X10^3/ul (0.83-4.51); Lymphocyte % 26.7 % (19-41); Mean Corp Hgb Conc 32.2 g/dL (32-36); Mean Corpuscular Hgb 29.6 pg (27.0-32.0); Mean Corpuscular Volume 91.8 fL (81-99); Mean Platelet Vol. 9.3 fl (6.2-12.0); Monocyte% 7.8 % (0-10); NRBC Flagged by Analyzer 0 % (0-5); Neutrophil # 4.06 X10^3/uL (2.7-7.7); Neutrophil % 63.5 % (47-70); Platelet Count 333 K/mm3 (150-450); RBC Distribution Width CV 13.2 % (11.6-14.6); RBC Distribution Width SD 44.4 fl (35.1-43.9); Red Blood Count 4.97 M/mm3 (4.2-5.4); White Blood Count 6.4 K/mm3 (4.4-11.0)
[2022-08-13 09:58] LABS: Erythrocyte Sedimentation Rate 27 mm/hr (0-30)
[2022-08-13 10:14] LABS: Microalbumin,Random Urine 21.6 mg/L (NO RANGE EST.)
[2022-08-13 10:42] LABS: Hemoglobin A1c 7.5 % (3.8-5.6)
[2022-08-13 10:57] LABS: ALB/GLOB Ratio 0.8 RATIO (0.9-2.4); AST(SGOT) 28 U/L (15-37); Alanine Aminotransfer ALT/SGPT 53 U/L (13-56); Albumin, Serum 3.5 g/dL (3.2-5.0); Alkaline Phosphatase 64 U/L (45-117); Anion Gap 7 (5-15); BUN 10 mg/dL (7-18); BUN/Creat Ratio 12.8 RATIO (10-20); Calcium,Total 8.9 mg/dL (8.5-10.1); Chloride 105 mmol/L (98-107); Cholesterol 263 mg/dL (200); Creatinine, Serum 0.78 mg/dL (0.55-1.02); EST Glomerular Filtration Rate 78 mL/min (>60); Est Glom Filt Rate - Afr Amer 95 mL/min (>60); GGTP 24 U/L (5-55); Globulin 4.6 g/dL (2.2-4.2); Glucose 191 mg/dL (74-106); High Density Lipoprotein 37 mg/dL; Potassium 3.6 mmol/L (3.5-5.1); Protein, Total 8.1 g/dL (6.4-8.2); Sodium Level 138 mmol/L (136-145); Triglycerides 230 mg/dL; Very Low Density Lipoprotein 46 mg/dL (5-40)
[2022-08-14 12:09] LABS: Anti-Mitochondrial AB <20.0 Units (0.0-20.0)
[2022-08-14 15:08] LABS: Anti-Smooth Muscle ABS 12 Units (0-19); HEPATITIS B SURFACE AG Negative (Negative); Hep C Antibodies Non Reactive (Non Reactive); Hepatitis A IgM Antibody Negative (Negative); Hepatitis B Core AB IgM Negative (Negative)
== END | disposition home or self-care (01) ==
PROVIDERS: PCP Internal Medicine; Referring Provider Physician Assistant Medical; Visit Provider Physician Assistant Medical
DX: E11.59 Type 2 diabetes mellitus with other circulatory complications (principal); I10 Essential (primary) hypertension; I15.2 Hypertension secondary to endocrine disorders; E78.2 Mixed hyperlipidemia
CPT/HCPCS: 36415; 80053; 80061; 80074; 82043; 82977; 83036; 83516; 84443; 85025; 85652

== ENCOUNTER → 2023-09-23 | Outpatient (CLI) | payer OTHER, BC, SELFPAY ==
[2023-09-23 10:36] LABS: Absolute Lymphocyte Count 1.54 X10^3/uL (0.83-4.51); Basophil# 0.04 X10^3/uL; Basophil% 0.6 % (0-1); Eosinophil# 0.08 X10^3/uL; Eosinophils% 1.3 % (0-5); Hematocrit 44.3 % (37-47); Hemoglobin 14.6 g/dL (12.0-15.0); Lymphocyte # 1.54 X10^3/ul (0.83-4.51); Lymphocyte % 24.9 % (19-41); Mean Platelet Vol. 9.4 fl (6.2-12.0); Monocyte# 0.47 X10^3/uL; Monocyte% 7.6 % (0-10); NRBC Flagged by Analyzer 0 % (0-5); Neutrophil # 4.04 X10^3/uL (2.7-7.7); Neutrophil % 65.3 % (47-70); Platelet Count 326 K/mm3 (150-450); RBC Distribution Width CV 13.1 % (11.6-14.6); RBC Distribution Width SD 43.1 fl (35.1-43.9); Red Blood Count 4.87 M/mm3 (4.2-5.4); White Blood Count 6.2 K/mm3 (4.4-11.0)
[2023-09-23 11:13] LABS: ALB/GLOB Ratio 0.7 RATIO (0.9-2.4); AST(SGOT) 55 U/L (15-37); Alanine Aminotransfer ALT/SGPT 99 U/L (13-56); Albumin, Serum 3.3 g/dL (3.2-5.0); Alkaline Phosphatase 68 U/L (45-117); Anion Gap 5 (5-15); BUN 11 mg/dL (7-18); BUN/Creat Ratio 12.5 RATIO (10-20); Calcium,Total 9.2 mg/dL (8.5-10.1); Chloride 103 mmol/L (98-107); Cholesterol 251 mg/dL (200); Creatinine, Serum 0.88 mg/dL (0.55-1.02); EST Glomerular Filtration Rate 69 mL/min (>60); Est Glom Filt Rate - Afr Amer 83 mL/min (>60); Ferritin 478 ng/mL (8-252); Globulin 4.7 g/dL (2.2-4.2); Glucose 323 mg/dL (74-106); High Density Lipoprotein 35 mg/dL; Iron Binding Capacity,Total 258 ug/dL (250-450); Sodium Level 136 mmol/L (136-145); Triglycerides 260 mg/dL; Very Low Density Lipoprotein 52 mg/dL (5-40); Vitamin B12 1103 pg/mL (211-911)
[2023-09-23 15:31] LABS: Hemoglobin A1c 10.2 % (3.8-5.6)
[2023-09-24 09:30] LABS: Iron 58 ug/dL (50-170)
== END | disposition home or self-care (01) ==
PROVIDERS: PCP Internal Medicine; Referring Provider Physician Assistant Medical; Visit Provider Physician Assistant Medical
DX: I10 Essential (primary) hypertension (principal); E11.65 Type 2 diabetes mellitus with hyperglycemia; E87.6 Hypokalemia; E78.2 Mixed hyperlipidemia
CPT/HCPCS: 36415; 80053; 80061; 82607; 82728; 83036; 83540; 83550; 83735; 85025

== ENCOUNTER → 2024-01-06 | Outpatient (CLI) | payer OTHER, BC, SELFPAY ==
[2024-01-06 11:00] LABS: Absolute Lymphocyte Count 1.96 X10^3/uL (0.83-4.51); Basophil# 0.05 X10^3/uL; Basophil% 0.6 % (0-1); Eosinophil# 0.08 X10^3/uL; Eosinophils% 0.9 % (0-5); Hematocrit 46.8 % (37-47); Hemoglobin 14.9 g/dL (12.0-15.0); Lymphocyte # 1.96 X10^3/ul (0.83-4.51); Lymphocyte % 22.5 % (19-41); Mean Corp Hgb Conc 31.8 g/dL (32-36); Mean Corpuscular Hgb 29.6 pg (27.0-32.0); Mean Platelet Vol. 9.1 fl (6.2-12.0); Monocyte# 0.61 X10^3/uL; NRBC Flagged by Analyzer 0 % (0-5); Neutrophil # 5.97 X10^3/uL (2.7-7.7); Neutrophil % 68.7 % (47-70); Platelet Count 296 K/mm3 (150-450); RBC Distribution Width CV 13.2 % (11.6-14.6); RBC Distribution Width SD 44.5 fl (35.1-43.9); Red Blood Count 5.03 M/mm3 (4.2-5.4); White Blood Count 8.7 K/mm3 (4.4-11.0)
[2024-01-06 11:26] LABS: Vitamin B12 1030 pg/mL (211-911)
[2024-01-06 11:30] LABS: Hemoglobin A1c 7.9 % (3.8-5.6)
[2024-01-06 11:34] LABS: ALB/GLOB Ratio 0.8 RATIO (0.9-2.4); AST(SGOT) 38 U/L (15-37); Alanine Aminotransfer ALT/SGPT 76 U/L (13-56); Albumin, Serum 3.5 g/dL (3.2-5.0); Alkaline Phosphatase 66 U/L (45-117); Anion Gap 6 (5-15); BUN 16 mg/dL (7-18); BUN/Creat Ratio 19.2 RATIO (10-20); Calcium,Total 9.3 mg/dL (8.5-10.1); Chloride 105 mmol/L (98-107); Creatinine, Serum 0.84 mg/dL (0.55-1.02); EST Glomerular Filtration Rate 73 mL/min (>60); Est Glom Filt Rate - Afr Amer 88 mL/min (>60); Ferritin 364 ng/mL (8-252); Globulin 4.4 g/dL (2.2-4.2); Glucose 226 mg/dL (74-106); Iron 66 ug/dL (50-170); Iron Binding Capacity,Total 278 ug/dL (250-450); Magnesium 2.3 mg/dL (1.6-2.6); PERCENT IRON SATURATION 23.7 % (15.0-55.0); Potassium 4.3 mmol/L (3.5-5.1); Protein, Total 7.9 g/dL (6.4-8.2); Sodium Level 139 mmol/L (136-145)
[2024-01-06 12:14] LABS: Microalbumin,Random Urine 17.1 mg/L (NO RANGE EST.); Microalbumin:Creatinine Ratio 8.3 mg/g CRE (<30 mg/g CRE)
--- OUTSIDE RECORDS SUMMARY | 2024-01-06 12:38 | XMS RPT_ITS | CCD ---
Author Organization [facility] ion [facility] Care Team Providers Care Shift Nurse Manager Name Role Phone Niharika Ramirez Unavailable Unavailable Unavailable Unavailable Unavailable Unavailable Unavailable Ms. Niharika Ramirez Referring Unav ailable James, Ms. Niharika Sandoval Attending Unav ailable Ms. Niharika Ramirez Primary Care Unav ailable NIHARIKA RAMIREZ Referring Unavailable NIHARIKA RAMIREZ Primary Care Unavailable NIHARIKA RAMIREZ Attending Unavailable NIHARIKA RAMIREZ Primary Care Unavailable Niharika Ramirez PA-C Primary Care Provider Allergies Allergy Classification Reported Allergen(s) Allergy Type Date of Onset Reaction(s) Facility Penicillins (antibiotic) (1 source) Ampicillin; Translations: [ampicillin] Drug Allergy [facility] Work Phone: Serotonin-1b and Serotonin-1d Receptor Agonists (3 sources) ZOLMitriptan; Translations: [Zomig] Drug Allergy Tachycardia [facility] Work Phone: (11 sources) ZOLMitriptan; Translations: [Zomig] Drug Allergy 08-16-2022 Palpitations [facility] (2 sources) ZOLMitriptan; Translations: [ZOLMITRIPTAN] Drug Allergy 08-16-2022 [facility] 2 Repository Medications Current Medications Medication Drug Class(es) Dates Sig (Normalized) Sig (Original) amLODIPine 10 mg oral tablet (14 sources) Dihydropyridine Calcium Channel Gertrudis Start: 10-02-2023 take 1 tablet by mouth once daily amLODIPine (Norvasc) 10 mg tablet Indications: Essential hypertension, benign Take 1 tablet (10 mg) by mouth once daily. 90 tablet 3 10/02/2023 Active take 1 tablet by mouth once tamera y amLODIPine Besylate 10 MG Oral Tablet Take 1 tablet daily Quantity: 90 Refills: 3 Ordered: 28-Jun-2021 Niharika Ramirez PA-C Active aspirin 81 mg delayed release oral tablet (14 sources) Platelet Aggregation Inhibitor, Nonsteroidal Anti-inflammatory Drug take 1 tablet by mouth once daily aspirin 81 mg EC tablet Take 1 tablet (81 mg) by mouth once daily. Active atenolol 50 mg oral tablet (14 sources) beta-Adrenergic Gertrudis Start: take 1 tablet by mouth once daily atenolol (Tenormin) 50 mg tablet Indications: Essential hypertension, benign Take 1 tablet (50 mg) by mouth once daily. 90 tablet 3 10/02/2023 Active take 1 tablet by mouth once tamera y Atenolol 50 MG Oral Tablet TAKE 1 TABLET DAILY. Quantity: 90 Refills: 3 Ordered: 28-Jun-2021 Niharika Ramirez PA-C Active calcium carbonate 1500 mg / cholecalciferol 1000 unt oral capsule (1 source) Vitamin D calcium carbonat e-vitamin D3 600 mg-25 mcg (1,000 unit) capsule Take by mouth early in the morning.. Active hydroCHLOROthiazide 12.5 mg oral tablet (14 sources) Thiazide Diuretic Start: take 1 tablet by mouth once daily hydroCHLOROthiazide (Microzide) 12.5 mg tablet Indications: Hypertension associated with type 2 diabetes mellitus (Multi) Take 1 tablet (12.5 mg) by mouth once daily. 90 tablet 3 10/02/2023 Active Start: 09-30-2019 take 1 tablet by jorge th once daily hydroCHLOROthiazide 12.5 MG Oral Tablet TAKE 1 TABLET DAILY. Quantity: 90 Refills: 3 Ordered: 28-Jun-2021 Niharika Ramirez PA-C Start : 30-Sep-2019 Active lisinopril 20 mg oral tablet (14 sources) Angiotensin Converting Enzyme Inhibitor Start: 10-02-2023 take 1 tablet by mouth twice daily lisinopril 20 mg tablet Indications: Hypertension associated with type 2 diabetes mellitus (Multi) Take 1 tablet (20 mg) by mouth 2 times a day. 180 tablet 3 10/02/2023 Active take 1 tablet by mouth twice michael ly Lisinopril 20 MG Oral Tablet Take 1 tablet twice daily Quantity: 180 Refills: 3 Ordered: 28-Jun-2021 Niharika Ramirez PA-C Active multivitamin tablet (1 source) take 1 tablet by mouth once daily multivitamin tablet Take 1 tablet by mouth once daily. Active microencapsulated potassium chloride 20 meq extended release oral tablet (14 sources) Start: 10-02-2023 take 1 tablet by mouth three times daily potassium chloride CR 20 mEq ER tablet Indications: Diuretic-induced hypokalemia Take 1 tablet (20 mEq) by mouth 3 times a day. Do not crush or chew. 270 tablet 3 10/02/2023 Active Start: 09-30-2019 take 1 tablet by jorge three times daily Klor-Con M20 20 MEQ Oral Tablet Extended Release TAKE 1 TABLET 3 times daily Quantity: 270 Refills: 3 Ordered: 28-Jun-2021 Niharika Ramirez PA-C Start : 30-Sep-2019 Active Start: 09-30-2019 take 1 tablet by jorge three times daily Klor-Con M20 20 MEQ Oral Tablet Extended Release TAKE 1 TABLET 3 times daily Quantity: 270 Refills: 3 Ordered: 28-Jun-2021 Niharika Ramirez PA-C Start : 30-Sep-2019 Active Start: 09-30-2019 take 1 tablet by jorge three times daily Klor-Con M20 20 MEQ Oral Tablet Extended Release TAKE 1 TABLET 3 times daily Quantity: 30 Refills: 0 Ordered: 21-May-2021 Niahrika Ramirez PA-C Start : 30-Sep-2019 Active Start: 09-30-2019 take 1 tablet by jorge three times daily Klor-Con M20 20 MEQ Oral Tablet Extended Release TAKE 1 TABLET 3 times daily Quantity: 30 Refills: 0 Ordered: 08-Feb-2021 Niharika Ramirez PA-C Start : 30-Sep-2019 Active psyllium 3400 mg powder for oral suspension (14 sources) psyllium husk, a spartame, (Metamucil Sugar-Free, aspart,) 3.4 gram/5.8 gram powder Take by mouth early in the morning.. Active Metamucil 48.57 % Oral Powder USE DIRECTED. Quantity: 0 Refills: 0 Ordered: 13-Feb-2019 DO Active semaglutide 0.25 mg or 0.5 mg (2 mg/3 mL) pen injector (1 source) Start: 10-05-2023 End: 01-06-2024 semaglutide 0.25 mg or 0.5 mg (2 mg/3 mL) pen injector Indications: Type 2 diabetes mellitus with hyperglycemia, without long-term current use of insulin Inject 0.25 mg under the skin 1 (one) time per week. 9 mL 10/05/2023 01/06/2024 Discontinued (Therapy completed) SITagliptin 100 mg oral tablet (7 sources) Dipeptidyl Peptidase 4 Inhibitor Start: 11-25-2023 take 1 tablet by mouth once daily SITagliptin phosphate (Januvia) 100 mg tablet Indications: Type 2 diabetes mellitus with hyperglycemia, without long-term current use of insulin Take 1 tablet (100 mg) by mouth once daily. 90 tablet 3 11/25/2023 Active Start: 06-28-2021 take 1 tablet by jorge th once daily Januvia 100 MG Oral Tablet TAKE 1 TABLET ONCE DAILY. Quantity: 90 Refills: 0 Ordered: 15-Apr-2022 Niharika Ramirez PA-C Start : 28-Jun-2021 Active VITAMIN E ACETATE ORAL (1 source) take 1 tablet by jorge th once daily VITAMIN E ACETATE ORAL Take 1 tablet by mouth once daily. Active Completed/Discontinued Medications Medication Drug Class(es) Dates Sig (Normalized) Sig (Original) metaxalone 800 mg oral tablet (2 sources) Start: 11-06-2020 Metaxalone 800 MG Oral Tablet Quantity: 21 Refills: 0 Ordered: 06-Nov-2020 DO Start : 06-Nov-2020 Complete methylPREDNISolone 4 MG Oral Tablet Therapy Pack (2 sources) Start: 12-06-2020 methylPREDNISolone 4 MG Oral Tablet Therapy Pack Quantity: 21 Refills: 0 Ordered: 06-Dec-2020 DO Start : 06-Dec-2020 Complete Multi-Vitamins TABS (13 sources) Multi-Vitamins T ABS TAKE 1 TABLET DAILY. Quantity: 0 Refills: 0 Ordered: 13-Feb-2019 DO Active Vitamin E TABS (13 sources) Vitamin E TABS T NEY 1 TABLET DAILY. Quantity: 0 Refills: 0 Ordered: 13-Feb-2019 DO Active Problems Active Problems Problem Classification Problem Date Documented Date Episodic/Chronic Diabetes mellitus with complications (20 sources) Hypertensive disorder; Translations: [Diabetes with other specified manifestations, type II or unspecified type, not stated as uncontrolled] Onset: 3 Chronic Diabetes mellitus without complication (14 sources) Type 2 diabetes mellitus; Translations: [Diabetes mellitus without mention of complication, type II or unspecified type, not stated as uncontrolled] Onset: 3 08-16-2022 Chronic Disorders of lipid metabolism (17 sources) Mixed hypercholesterolemia and hypertriglyceridemia; Translations: [Mixed hyperlipidemia] Onset: 3 Chronic E Codes: Adverse effects of medical drugs (2 sources) Adverse effect of carbonic-anhydrase inhibitors, benzothiadiazides and other diuretics, initial encounter; Translations: [Adverse effect of carbonic-anhydrase inhibitors, benzothiadiazides and other diuretics, initial encounter] Onset: 3 Episodic Heart valve disorders (14 sources) Mitral valve prolapse; Translations: [Mitral valve disorders] Onset: 3 08-16-2022 Chronic Hypertension with complications and secondary hypertension (2 sources) Hypertension secondary to endocrine disorders; Translations: [Hypertension secondary to endocrine disorders] Onset: 3 Chronic Other nutritional; endocrine; and metabolic disorders (13 sources) Obesity; Translations: [Obesity, unspecified] Chronic Other nutritional; endocrine; and metabolic disorders (5 sources) Body mass index 30+ - obesity; Translations: [Body Mass Index 34.0-34.9, adult] Chronic Other nutritional; endocrine; and metabolic disorders (1 source) Obesity caused by energy imbalance; Translations: [Class 1 obesity due to excess calories with serious comorbidity and body mass index (BMI) of 31.0 to 31.9 in adult] Onset: 4 01-06-2024 Chronic Other screening for suspected conditions (not mental disorders or infectious disease) (20 sources) Patient encounter status; Translations: [Breast screening, unspecified] Onset: 3 Episodic Residual codes; unclassified (4 sources) Asymptomatic menopausal state; Translations: [Asymptomatic menopausal state] Onset: 3 Episodic Past or Other Problems Problem Classification Problem Date Documented Da te Episodic/Chronic Essential hypertension (16 sources) Benign essential hypertension; Translations: [Benign essential hypertension] Onset: 08-16-2022 Resolved: 08-19-2022 Chronic Fluid and electrolyte disorders (16 sources) Drug-induced hypokalemia; Translations: [Hypopotassemia] Onset: 08-16-2022 Episodic Malaise and fatigue (1 source) Fatigue; Translations: [Other fatigue] Onset: 08-19-2022 08-19-2022 Episodic Other and unspecified benign neoplasm (14 sources) Polyp of colon; Translations: [Benign neoplasm of colon] Onset: 08-16-2022 08-16-2022 Episodic Other liver diseases (13 sources) Elevated liver enzymes level; Translations: [Other nonspecific abnormal serum enzyme levels] Resolved: 02-13-2019 Episodic Residual codes; unclassified (12 sources) Past history of procedure; Translations: [Other specified personal history presenting hazards to health] Onset: 11-26-2018 Episodic Comment on above: CAT 1; Spondylosis; intervertebral disc disorders; other back problems (14 sources) Chronic low back pain; Translations: [Lumbago] Onset: 08-16-2022 08-16-2022 Episodic Unclassified (1 source) Onset: 10-02-2023 10-02-2023 Results Test Name Value Interpretation Reference Range Facility BI MAMMO BILATERAL SCREENING TOMOSYNTHESISon 10-16-2023 BI MAMMO BILATERAL SCREENING TOMOSYNTHESIS Interpreted By: Rosa Ramos, STUDY: BI MAMMO BILATERAL SCREENING TOMOSYNTHESIS; 10/16/2023 8:15 am ACCESSION NUMBER(S): [id number] ORDERING CLINICIAN: NIHARIKA RAMIREZ INDICATION: Screening. COMPARISON: Digital mammograms dated 08/26/2022 FINDINGS: CC and MLO 2D digital mammograms and digital breast tomosynthesis images were obtained of the bilateral breasts. 3-D volume images were reconstructed in 4 views at an independent workstation as 1 mm slices through the breasts in both the CC and MLO projections. Density: There are areas of scattered fibroglandular tissue. No discrete mass or focal asymmetry is identified. No suspicious microcalcifications or foci of architectural distortion are seen. There has been no significant change. This study was interpreted with CAD. IMPRESSION: No mammographic evidence of malignancy. BI-RADS CATEGORY: BI-RADS Category: 1 Negative. Recommendation: Routine Screening Mammogram in 1 Year. Recommended Date: 1 Year. Laterality: Bilateral. MACRO: None Signed by: Rosa Ramos 10/16/2023 11:42 AM Dictation workstation: [id number] [facility] BONE DENSITY, DEXA 1 OR MORE SITES: AXIAL SKELETONon 08-26-2022 BONE DENSITY, DEXA 1 OR MORE SITES: AXIAL SKELETON Patient Name: ANALIA MAYER STUDY: BONE DENSITY, DEXA 1 OR MORE SITES: AXIAL SKELETN08/26/2022 2:17 pm INDICATION: post menopausalThe patient is a 62 year old female for a screening bone Densitometry (DEXA). COMPARISON: 09/12/2017. ACCESSION NUMBER(S): [id number] ORDERING CLINICIAN: NIHARIKA RAMIREZ TECHNIQUE: Bone Densitometry (DEXA) of the lumbar spine and left hip performed. FINDINGS: Name: ANALIA MAYER Date:1960 Height:175.25 Gender:F Exam Date:08/26/2022 Weight:106.6 Indications:post menopausal Fractures:None Treatments:None LEFT FEMUR -TOTAL Bone Mineral Density: 1.000 g/cm2 T-Score 0.5 Z-Score 1.7 LEFT FEMUR -NECK Bone Mineral Density: 0.806 g/cm2 T-Score -0.4 Z-Score 1.1 SPINE L1-L4 Bone Mineral Density: 1.109 g/cm2 T-Score 0.6 Z-Score 2.3 World Health Organization (WHO) criteria for post-menopausal, Women: Normal: T-score at or above -1 SD Osteopenia: T-score between -1 and -2.5 SD Osteoporosis: T-score at or below -2.5 SD 10-Year Fracture Risk: FRAX NA IMPRESSION: According to World Health Organization criteria, classification is normal. Followup recommended in 2 years or sooner as clinically warranted. Electronically signed by: ROSA RAMOS MD [facility] DIGITAL MAMM SCREENING W/ TO Burt 08-26-2022 DIGITAL MAMM SCREENING W/ BRADLEY Patient Name: ANALIA MAYER STUDY: Digital mammography screening with bradley; 08/26/2022 2:11 pm ACCESSION NUMBER(S): [id number] ORDERING CLINICIAN: NIHARIKA RAMIREZ INDICATION: Screening. COMPARISON: Comparison is made to prior digital mammograms dated 07/12/2021 FINDINGS: CC and MLO 2D digital mammograms and digital breast tomosynthesis images were obtained of the bilateral breasts. 3-D volume images were reconstructed in 4 views at an independent workstation as 1 mm slices through the breasts in both the CC and MLO projections. There are areas of scattered fibroglandular tissue. No discrete mass or focal asymmetry is identified. No suspicious microcalcifications or foci of architectural distortion are seen. There has been no significant change. This study was interpreted with CAD. IMPRESSION: No mammographic evidence of malignancy. BI-RADS CATEGORY: Category: 1 - Negative. Recommendation: 1 Year Screening. Electronically signed by: ROSA RAMOS MD [facility] Mamm - Screening Mammogram w / Tomosynthesison 07-12-2021 MG Breast Screening Normal [facility] Work Phone: Office Visit (Internal Medic ine)on 06-28-2021 Follow-up visit Diagnoses/Problems Assessed DM2 (diabetes mellitus, type 2) (250.00) (E11.9) Breast cancer screening (V76.10) (Z12.39) Benign essential hypertension (401.1) (I10) Encounter for wellness examination in adult (V70.0) (Z00.00) Hypercholesterolemia with hypertriglyceridemia (272.2) (E78.2) Hypertension associated with diabetes (250.80,401.9) (E11.59,I15.2) Diuretic-induced hypokalemia (276.8,E944.4) (E87.6,T50.2X5A) Class 1 obesity due to excess calories with serious comorbidity and body mass index (BMI) of 34.0 to 34.9 in adult (278.00,V85.34) (E66.09,Z68.34) BMI 34.0-34.9,adult (V85.34) (Z68.34) Orders Benign essential hypertension Renew: amLODIPine Besylate 10 MG Oral Tablet; Take 1 tablet daily Rx By: Niharika Ramirez; Dispense: 0 Days ; #:90 Tablet; Refill: 3;For: Benign essential hypertension; MIKAELA = N; Verified Transmission to [facility]; Last Updated By: Kendra Pedro; 06/28/2021 9:47:59 AM Renew: Atenolol 50 MG Oral Tablet; TAKE 1 TABLET DAILY Rx By: Niharika Ramirez; Dispense: 90 Days ; #:90 Tablet; Refill: 3;For: Benign essential hypertension; MIKAELA = N; Verified Transmission to [facility]; Last Updated By: Kendra Pedro; 06/28/2021 9:47:57 AM Renew: hydroCHLOROthiazide 12.5 MG Oral Tablet; TAKE 1 TABLET DAILY Rx By: Niharika Ramirez; Dispense: 90 Days ; #:90 Tablet; Refill: 3;For: Benign essential hypertension; MIKAELA = N; Verified Transmission to [facility]; Last Updated By: Kendra Pedro; 06/28/2021 9:47:59 AM Renew: Lisinopril 20 MG Oral Tablet; Take 1 tablet twice daily Rx By: Niharika Ramirez; Dispense: 90 Days ; #:180 Tablet; Refill: 3;For: Benign essential hypertension; MIKAELA = N; Verified Transmission to [facility]; Last Updated By: Kendra Pedro; 06/28/2021 9:47:59 AM Breast cancer screening Mamm - Screening Mammogram w/ Tomosynthesis; Status:Active; Requested for:[id number]; Perform:[facility]; Last Updated By:Candelaria Flores; 06/28/2021 10:17:17 AM;Ordered; For:Breast cancer screening; Ordered By:Niharika Ramirez; 07/12/2021 Radiologist to Determine Optimal Study : Y What are the patient's signs and symptoms ? : Annual Screening Mammogram Diuretic-induced hypokalemia Renew: Klor-Con M20 20 MEQ Oral Tablet Extended Release; TAKE 1 TABLET 3 times daily Rx By: Niharika Ramirez; Dispense: 90 Days ; #:270 Tablet; Refill: 3;For: Diuretic-induced hypokalemia; MIKAELA = N; Verified Transmission to [facility]; Last Updated By: Kendra Pedro; 06/28/2021 9:47:58 AM DM2 (diabetes mellitus, type 2) Start: Blood Glucose Monitor System w/Device Kit; USE TO CHECK GLUCOSE BID. ANY BRAND INSURANCE WILL COVER Rx By: Niharika Ramirez; Dispense: 0 Days ; #:1 Kit; Refill: 0;For: DM2 (diabetes mellitus, type 2); MIKAELA = N; Verified Transmission to [id number]; Last Updated By: [email or web address] ([employer]); 06/28/2021 1:06:22 PM Start: Blood Glucose Test In Vitro Strip; check glucose bid Rx By: Niharika Ramirez; Dispense: 0 Days ; #:100 Strip; Refill: 11;For: DM2 (diabetes mellitus, type 2); MIKAELA = N; Verified Transmission to [id number]; Last Updated By: [email or web address] ([employer]); 06/28/2021 1:06:23 PM Start: Januvia 100 MG Oral Tablet; TAKE 1 TABLET ONCE DAILY Rx By: Niharika Ramirez; Dispense: 90 Days ; #:90 Tablet; Refill: 3;For: DM2 (diabetes mellitus, type 2); MIKAELA = N; Verified Transmission to [facility]; Last Updated By: [email or web address] ([employer]); 06/28/2021 9:47:58 AM Start: Lancets; use to check glucose bid Rx By: Niharika Ramirez; Dispense: 0 Days ; #:100 Each; Refill: 11;For: DM2 (diabetes mellitus, type 2); MIKAELA = N; Verified Transmission to [facility]; Last Updated By: [email or web address] ([employer]); 06/28/2021 1:06:22 PM SocHx: Non-smoker Tobacco Use Screening; Status:Complete; Done: 28Jun2021 Perform:Not Applicable;Ordered; For:SocHx: Non-smoker; Ordered By:Chadwick Durham; Patient Discussion/Summary f/u 3-4 mo with labs at [facility] CMP - DM hgba1c microalbumin urine TSH + reflux, fatigue, obese hep panel - elevated LFT (this is all to r/o hep or auto-immune hep) anti-smooth muscle antibody anti- LKM1 (liver kidney microome antibody) anti- mitochondria antibody ESR GGT Provider Impressions 1.Complexity: More than 1 stable chronic condition addressed 2.Data: Tests interpreted and or ordered, took independent history or records reviewed 3.Risks: Moderate Risk due to nature of medical conditions /comorbidity or meds ordered or surgical procedure referral Reviewed notes on file Reviewed labs and Testing on file Patient to follow diet low in cholesterol, fat, and sodium. Patient is advised to increase Exercise. Patient is recommended to lose weight. Reviewed Meds and discussed common side effects Continue as directed DM - will start on januvia 1/2 tab daily x 1-2 weeks then full tab. suggest office visit in 6-8 weeks and (more content not included)... Normal [facility] Tobacco Screening.on 022 Adult depression screening assessment No [facility] Work Phone: Fall risk assessment a) No falls within the last year [facility] Work Phone: Tobacco use status [facility] b) No [facility] Work Phone: Laboratory - Chemistry and C hemistry - challengeon 06-14-2021 Glucose [Mass/Vol] 269 mg/dL [facility] Work Phone: Laboratory - Hematology and Cell countson 06-14-2021 HbA1c (Bld) [Mass fraction] 10.9 % [facility] Work Phone: Office Visit (Internal Medic ine)on 10-05-2020 Follow-up visit Diagnoses/Problems Assessed Breast cancer screening (V76.10) (Z12.39) Encounter for wellness examination in adult (V70.0) (Z00.00) DM2 (diabetes mellitus, type 2) (250.00) (E11.9) Hypercholesterolemia with hypertriglyceridemia (272.2) (E78.2) Hypertension associated with diabetes (250.80,401.9) (E11.59,I15.2) Obesity due to excess calories (278.00) (E66.09) Polyp of colon (211.3) (K63.5) Orders Benign essential hypertension Renew: Atenolol 50 MG Oral Tablet; TAKE 1 TABLET DAILY Rx By: Niharika Ramirez; Dispense: 90 Days ; #:90 Tablet; Refill: 3;For: Benign essential hypertension; MIKAELA = N; Verified Transmission to [facility]; Last Updated By: Kendra Pedro; 10/05/2020 9:28:33 AM Renew: Lisinopril 20 MG Oral Tablet; Take 1 tablet twice daily Rx By: Niharika Ramirez; Dispense: 90 Days ; #:180 Tablet; Refill: 3;For: Benign essential hypertension; MIKAELA = N; Verified Transmission to [facility]; Last Updated By: Kendra Pedro; 10/05/2020 9:28:34 AM Breast cancer screening Mamm - Screening Mammogram w/ Tomosynthesis; Status:Canceled; Perform:[facility]; Last Updated By:Jomar Go; 10/05/2020 9:32:21 AM;Ordered; For:Breast cancer screening; Ordered By:Niharika Ramirez; Reason: Unspecified for Mamm Screening Digital w Tomosynthesis Radiologist to Determine Optimal Study : Y What are the patient's signs and symptoms ? : Annual Screening Mammogram Patient Discussion/Summary f/u in 6 mo with labs at [facility] - hand write for patient CMP - DM hgba1c lipid set up screening mammo - order was placed in apr - done last 2018 Provider Impressions 1.Complexity: More than 1 stable chronic condition addressed 2.Data: Tests interpreted and or ordered, took independent history or records reviewed 3.Risks: Moderate Risk due to nature of medical conditions /comorbidity or meds ordered or surgical procedure referral Reviewed notes on file Reviewed labs and Testing on file Patient to follow diet low in cholesterol, fat, and sodium. Patient is advised to increase Exercise. Patient is recommended to lose weight. Reviewed Meds and discussed common side effects Continue as directed discussed approp preventative testing /vaccines/ etc suggest repeat labs in 3-6 mo given DM discussed set up preventative testing -see HPI - will call if she is agreeable Patient is strongly advised to be compliant with recommendations. Return to Clinic sooner if needed. Patient denies further questions/concerns at this time Chief Complaint WELLNESS WITH LABS FOR WORK. NO COMPLAINTS History of Present Illnesspt presents today for... 1 wellness labs- up to date - done [facility]- reviewed - -DM - stable on meds other providers eye - Fall 2019 - follows with them typically every fall Dentist - pt goes every 6 mo preventative testing colonoscopy - june 2020-hx of hyperplastic polyp, fam hx of colon cancer repeat 5 years PAP - maybe 5 years ago - was WNL due -pt is putting on hold mammo -nov 2018 - WNl- agreeable to updated DEXA - WNL - September 2017 vaccines influenza- pt gets every fall at work PNA- prevnair 13 4 years ago - due for pneumovax now Tdap- done in 2010 and maybe booster since she thinks Shingles- shingris jan 2020 and apr 2020 MMR- discussed consider titer or booster given outbreak Hep B -pt states had vaccine done with work COVID - Feb 2020 and Mar 2020 Review of Systems Review of Systems Constitutional: No fever, No chills, No weakness, No fatigue Eye: No blurring, No visual disturbances Ear/Nose/Mouth/Throat: No ear pain, No nasal congestion, No sore throat Respiratory: No shortness of breath, No cough Cardiovascular: No chest pain, No palpitations, No peripheral edema Gastrointestinal: No nausea, No vomiting, No diarrhea, No constipation Genitourinary: No dysuria Hematology/Lymphatics: No swollen lymph glands Endocrine: No cold intolerance, No heat intolerance Immunologic: No recurrent fevers, No recurrent infections Musculoskeletal: No joint pain, No muscle pain Integumentary: No rash, No pruritus Neurologic: Alert and Oriented x 4: No headache Psychiatric: situational anxiety and depression - caring for sick father Active Problems Problems Benign essential hypertension (401.1) (I10) Breast cancer screening (V76.10) (Z12.39) Chronic low back pain (724.2,338.29) (M54.5,G89.29) Diuretic-induced hypokalemia (276.8,E944.4) (E87.6,T50.2X5A) DM2 (diabetes mellitus, type 2) (250.00) (E11.9) Encounter for wellness examination in adult (V70.0) (Z00.00) Hypercholesterolemia with hypertriglyceridemia (272.2) (E78.2) Hypertension associated with diabetes (250.80,401.9) (E11.59,I15.2) Mitral valve prolapse (424.0) (I34.1) Obesity due to excess calories (278.00) (E66.09) Polyp of colon (211.3) (K63.5) Past Medical History Problems History of Elevated liver enzyme (more content not included)... Normal [facility] Tobacco Screening.on 021 Fall risk assessment a) No falls within the last year [facility] Work Phone: Tobacco use status CPHS b) No [facility] Work Phone: Laboratory - Hematology and Cell countson 09-27-2020 HbA1c (Bld) [Mass fraction] 6.7 % [facility] Work Phone: [facility] Surgical Pathology Depar tmenton 07-06-2020 [facility] Surgical Pathology Department Name ANALIA MAYER Pathologist: YOVANA LEON MD Date of Procedure: 07/06/2020 Date Received: 07/07/2020 Date Reported 07/10/2020 Submitting Physician: KIMBERLY CAPUTO M.D. Location: [facility] Endoscopy Copy To/Referring/Attending: Niharika Ramirez PA-C Other External # FINAL DIAGNOSIS A. RECTUM, POLYPECTOMY: --HYPERPLASTIC POLYP. Electronically Signed Out By YOVANA LEON MD/[facility] [place] By the signature on this report, the individual or group listed as making the Final Interpretation/Diagnosis certifies that they have reviewed this case. Clinical History: Physician Contact Number: [id number] Fixative (A): Formalin Clinical Diagnosis History PERSONAL HX OF COLONIC POLYPS Specimens Submitted As: A: RECTAL POLYP Gross Description: Received in formalin, labeled with the patient's name and hospital number and rectal polyp , are multiple fragments of mcintosh, soft tissue aggregating to 0.5 x 0.2 x 0.2 cm. The specimen is submitted in toto in one cassette. CJN cjn/07/09/2020 [facility] Department of Pathology [address] [place] [address] Normal [facility] Comment on above: Performed By: #### [facility] #### [facility] Surgical Pathology Department [address] [place] [address] CORONAVIRUS 2019, SCREEN ASY MPTOMATICon 07-04-2020 SARS-CoV-2 (COVID-19) RNA JAVIER+probe Ql (Unsp spec) Not detected Normal Not Detected [facility] Comment on above: Result Comment: . This assay is designed to detect SARS-CoV-2 based on replication of specific regions of the RNA from the SARS-CoV-2 virus. A Not Detected result does not preclude 2019-nCoV infection since the adequacy of sample collection and/or low viral burden may result in presence of viral nucleic acids below the clinical sensitivity of this test method. Fact sheet for providers: https://www.fda.gov/media/163242/download Fact sheet for patients: https://www.fda.gov/media/913127/download This test has received FDA Emergency Use Authorization [EUA] and has been verified by [facility] ([facility]). This test is only authorized for the duration of time that circumstances exist to justify the authorization of the emergency use of in vitro diagnostic tests for the detection of SARS-CoV-2 virus and/or diagnosis of COVID-19 infection under section 564(b)(1) of the Act, 21 U.S.C. 360bbb-3(b)(1), unless the authorization is terminated or revoked sooner. [facility] is certified under CLIA-88 as qualified to perform high complexity testing. Testing is performed in the [facility] laboratories located at [address] [place] [address]. Performed By: #### C [facility] #### [address] [place] [address] Covid 19 Resultson 1 SARS-CoV-2 (COVID-19) RNA JAVIER+probe Ql (Unsp spec) NEGATIVE COVID-19 Test Coronaviruses are common world-wide and are the cause of many common colds. SARS-COV2 is a new coronavirus that began circulating worldwide in 2019 so we are calling it COVID-19. It has been estimated that four out of five patients with COVID-19 will recover at home without the need for medical attention. Symptoms of COVID-19 may include cough, fever, shortness of breath, loss of taste or smell and other flu-like symptoms including chills, sore muscles, sore throat, and headache. Severe illness is more common in older people and people with other health problems such as high blood pressure, obesity, and immune system problems. If the test is positive, you have COVID-19. You will be contacted by the ordering physicians office and instructed to remain on home isolation, in accordance with CDC guidelines. You may also be contacted by the [facility] to see if any of your close contacts may have been exposed to the virus and need to quarantine. If the test is negative, you likely do not have COVID-19 at this time, but you still may have a different illness that can spread to other people (like Influenza, or the Flu) and could still be at risk for getting COVID-19. We recommend that you stay away from other people to limit the spread of illness until your symptoms are improving and you are fever-free for 24 hours without the use of fever lowering medications such as acetaminophen or ibuprofen. No test is 100% accurate so if you are still concerned you may have COVID-19, talk to your doctor about the need to continue to stay away from others. Medicines Unless your provider told you not to use the following: Acetaminophen (Tylenol and others) is generally safe. Anti-inflammatory medications, such as Ibuprofen (Advil or Motrin) or Naproxen (Aleve) can also be used. Rqwr-cnn-ddwkmxg cough and cold medicines can be used according to the instructions on the package. Some oqkv-dil-qskghlg medicines also contain acetaminophen. Make sure you are not taking more than your recommended dose. For those not hospitalized, there is no specific treatment available for this illness. Antibiotics do not treat Coronaviruses. Follow-Up Follow up with your doctor by scheduling a virtual visit or consider follow-up at one of our urgent care fever clinics. If you are having difficulty breathing, or are very weak and having difficulty standing, this is a medical emergency. Call 911 or have someone take you to the nearest emergency room immediately. If possible, wear a facemask. Additional guidance from the CDC for patients who tested POSITIVE for COVID-19 How to isolate: Isolate yourself in a specific room at home and limit your contact with others. Use a separate bathroom from other members of the household, when possible. Leave home only to get essential medical care. Do not go to work, school or public areas. Avoid using public transportation, ride-sharing, or taxis. Restrict contact with pets and other animals. If you must care for your pet or be around animals while you are sick, wash your hands before and after your interaction and wear a facemask. Make sure that shared spaces in the home have good airflow, such as by an air conditioner or an opened window, weather permitting. Personal Hygiene Procedures: Wear a face mask when in the same room as other people or pets. If a face mask interferes with your breathing, others should wear a mask when sharing space with you. Frequent hand-washing: wash your hands with soap and water for at least 20 seconds. If soap and water are not available, use alcohol-based hand curber. Avoid touching your eyes, nose, and mouth with unwashed hands. Household Hygiene Procedures: Avoid sharing personal household items such as dishes, glassware, cups, eating utensils, towels or bedding with other people or pets in your home. After use, these items should be washed with soap and hot water. Disinfect all high-touch surfaces every day with antibacterial cleaning solutions such as Lysol wipes, bleach, cleansers, etc. High-touch surfaces include tabletops, doorknobs, bathroom fixtures, toilets, phones, keyboards, tablets and bedside tables. Immediately clean any surfaces that may have blood, poop or body fluids on them, using antibacterial cleaning solutions such as Lysol wipes, bleach, cleansers, etc. If clothing or bedding come into contact with blood, poop or body fluids, they should be washed immediately. Follow the directions on the laundry detergent and clothing labels but hot water is recommended when possible. Stopping home isolation precautions: If possible, consult your doctor before stopping home isolation precautions. According to the CDC, you can discontinue home isolation precautions when you have met both of these criteria: Your fever and respiratory symptoms have been gone for 24 edith (more content not included)... Normal [facility] CORONAVIRUS 2019, SCREEN ASY MPTOMATICon 07-03-2020 Lab Specimen Source Nasal, Nasopharyngeal Normal [facility] Comment on above: Performed By: #### C OVSC #### [facility] [address] [place] [address] MA Mamm Screen w/CAD if perf and 3D Bilon 11-26-2018 Bilirubin.direct [Mass/Vol] Exam Date/Time: 11/26/2018 08:16 EDT Reason for Exam: SCREENING 3D;Screening Report STUDY: Digital mammography screening with bradley; 11/26/2018 8:16 am ACCESSION NUMBER(S): [id number] ORDERING CLINICIAN: Niharika Ramirez INDICATION: Screening. COMPARISON: Comparison is made to prior digital mammograms dated09/12/2017 and 05/31/2015 FINDINGS: CC and MLO 2D digital mammograms and digital breast tomosynthesis images were obtained of the bilateral breasts. 3-D volume images were reconstructed in 4 views at an independent workstation as 1 mm slices through the breasts in both the CC and MLO projections. There are areas of scattered fibroglandular tissue. No discrete mass or focal asymmetry is identified. No suspicious microcalcifications or foci of architectural distortion are seen. There has been no significant change. This study was interpreted with CAD. IMPRESSION: No mammographic evidence of malignancy. BI-RADS CATEGORY: Category: 1 - Negative. Recommendation: Normal Interval Follow-up, Over Age 40. Recall Interval: 12 Months. Breast Density: Scattered Fibroglandular Density. FINAL REPORT Dictated: 11/26/2018 12:26 pm Rosa Ramos MD Signed (Electronic Signature): 11/26/2018 12:26 pm Signed by: Rosa Ramos MD Technologist: ALYSSA Assessment: BI-RADS Category 1-Negative Recommendation: Normal interval follow-up Normal [facility] Vital Signs Date Time Vital Sign Value Performing Clinician Anthony jordan 01-06-2024 11:41-0400 Diastolic blood pressure 88 mm[Hg] Niharika BURTONC Work Phone: [facility] 01-06-2024 11:41-0400 Systolic blood pressure 138 mm[Hg] Niharika BOLDEN-C Work Phone: [facility] 01-06-2024 08:31-0400 Body height 175.3 cm Niharika BURTONC Work Phone: [facility] 01-06-2024 08:31-0400 Body mass index (BMI) [Ratio] 31.22 kg/m2 Niharika BOLDEN-C Work Phone: [facility] 01-06-2024 08:31-0400 Body weight 95.89 kg Niharika Stackenhall PA-C Work Phone: [facility] 01-06-2024 08:31-0400 Heart rate 81 /min Niharika Stackenhall PA-C Work Phone: [facility] 06-28-2021 09:05-0400 Body height 175.26 cm Niharika Butlerall Work Phone: [facility] Work Phone: 06-28-2021 09:05-0400 Body mass index (BMI) [Ratio] 34.7 kg/m2 Niharika Stackenhall Work Phone: [facility] Work Phone: 06-28-2021 09:05-0400 Body surface area Derived from formula 2.21 m2 Niharika Shannon James Work Phone: [facility] Work Phone: 06-28-2021 09:05-0400 Body weight 106.6 kg Niharika Stackenhall Work Phone: [facility] Work Phone: 06-28-2021 09:05-0400 Diastolic blood pressure 82 mm[Hg] Niharika Stackenhall Work Phone: [facility] Work Phone: 06-28-2021 09:05-0400 Heart rate 82 /min Niharika Stackenhall Work Phone: [facility] Work Phone: 06-28-2021 09:05-0400 Systolic blood pressure 140 mm[Hg] Niharika Shannon [employer] Work Phone: [facility] Work Phone: 10-05-2020 08:49-0400 Body height 175.26 cm Niharika Stackenhall Work Phone: [facility] Work Phone: 10-05-2020 08:49-0400 Body mass index (BMI) [Ratio] 32.93 kg/m2 Niharika Ramirez Work Phone: [facility] Work Phone: 10-05-2020 08:49-0400 Body surface area Derived from formula 2.16 m2 Niharika Stackenhall Work Phone: [facility] Work Phone: 10-05-2020 08:49-0400 Body weight 101.15 kg Niharika Stackenhall Work Phone: [facility] Work Phone: 10-05-2020 08:49-0400 Diastolic blood pressure 74 mm[Hg] Niharika Butlerall Work Phone: [facility] Work Phone: 10-05-2020 08:49-0400 Heart rate 66 /min Niharikaluther Ramirez Work Phone: [facility] Work Phone: 10-05-2020 08:49-0400 Systolic blood pressure 112 mm[Hg] Niharika Ortega James Work Phone: [facility] Work Phone: Encounters Encounter Date Encounter Type Care Provider Facility Start: 01-06-2024 End: 01-06-2024 Patient encounter status Niharika Ramirez PA-C Work Phone: [facility] Work Phone: Start: 01-06-2024 End: 01-06-2024 Periodic preventive med est patient 65yrs& older Niharika Ramirez PA-C Work Phone: [facility] Comment on above: Encounter for wellne ss examination in adult (Primary Dx); Hypercholesterolemia with hypertriglyceridemia; Type 2 diabetes mellitus with hyperglycemia, without long-term current use of insulin; Elevated ferritin; Hypertension associated with diabetes (Multi) Start: 10-16-2023 End: 10-16-2023 ambulatory [place] Shannon [facility] Start: 10-02-2023 End: 10-02-2023 ambulatory NIHARIKA Shannon [facility] Start: 08-26-2022 ambulatory Ms. Niharika Ramirez Facility:[id number] Start: 04-15-2022 AUDIT Niharika condon Work Phone: [facility] Work Phone: Start: 10-02-2021 AUDIT Niharika condon Work Phone: [facility] Work Phone: Start: 08-13-2021 Chart Update Niharika condon Work Phone: [facility] Work Phone: Start: 07-17-2021 Chart Update Niharika condon Work Phone: [facility] Work Phone: Start: 06-28-2021 Patient encounter procedure Niharika Ramirez Work Phone: [facility] Work Phone: Start: 06-28-2021 Periodic preventive med est patient 40-64yrs Niharika Ramirez Work Phone: [facility] Work Phone: Start: 05-18-2021 AUDIT Niharika condon Work Phone: [facility] Work Phone: Start: 05-16-2021 AUDIT Niharika condon Work Phone: [facility] Work Phone: Start: 02-26-2021 Chart Update Niharika condon Work Phone: [facility] Work Phone: Start: 02-08-2021 Rx Renewal Niharika Loredo nhall Work Phone: [facility] Work Phone: Start: 10-05-2020 FUV, Provider: Niharika Ramirez, Status: Ezio, Time: 8:40 AM Niharika Ramirez Work Phone: [facility] Work Phone: Start: 10-05-2020 Patient encounter procedure Niharikaluther Ramirez Work Phone: [facility] Work Phone: Start: 10-05-2020 Periodic preventive med est patient 40-64yrs Niharika Ramirez Work Phone: [facility] Work Phone: Start: 10-04-2020 AUDIT Niharika Stacke roseanna Work Phone: [facility] Work Phone: Patient encounter status Niharika Ramirez Work Phone: [facility] Work Phone: Procedures Date Procedure Procedure Detail Performing Clinician Start: 10-16-2023 Mammography Niharika chapin PA-C Work Phone: Start: 07-06-2020 Colonoscopy Niharika BOLDEN-Kem Work Phone: Start: 09-30-2013 Colonoscopic polypectomy Niharika Ramirez Work Phone: Biopsy of breast Niharika strickland Work Phone: Comment on above: LEFT BREAST - 2008; Endometrial ablation Niharika Ramirez Work Phone: Tonsillectomy Niharika Stacke roseanna Work Phone: Plan of Treatment Date Care Activity Detail Author Start: 07-06-2030 Screening for malign ant neoplasm of colon [facility] Start: 10-15-2024 Screening for malign ant neoplasm of breast Mammogram [facility] Start: 04-07-2024 End: 01-05-2025 CBC W Auto Differential panel - Blood CBC and Auto Differential Lab Routine Type 2 diabetes mellitus with hyperglycemia, without long-term current use of insulin Elevated ferritin Hypertension associated with diabetes (Multi) Expected: 04/07/2024 (Approximate), Expires: 01/05/2025 [facility] Service Area Work Phone: Comment on above: Expected: 04/07/2024 (Approximate), Expires: 01/05/2025 Start: 04-07-2024 End: 01-05-2025 Cobalamin (Vitamin B12) [Mass/volume] in Serum or Plasma Vitamin B12 Lab Routine Type 2 diabetes mellitus with hyperglycemia, without long-term current use of insulin Hypertension associated with diabetes (Multi) Expected: 04/07/2024 (Approximate), Expires: 01/05/2025 [facility] Work Phone: Comment on above: Expected: 04/07/2024 (Approximate), Expires: 01/05/2025 Start: 04-07-2024 End: 01-05-2025 Comprehensive metabolic 2000 panel - Serum or Plasma Comprehensive Metabolic Panel Lab Routine Type 2 diabetes mellitus with hyperglycemia, without long-term current use of insulin Hypertension associated with diabetes (Multi) Expected: 04/07/2024 (Approximate), Expires: 01/05/2025 [facility] Work Phone: Comment on above: Expected: 04/07/2024 (Approximate), Expires: 01/05/2025 Start: 04-07-2024 End: 01-05-2025 Ferritin [Mass/volume] in Serum or Plasma Ferritin Lab Routine Type 2 diabetes mellitus with hyperglycemia, without long-term current use of insulin Elevated ferritin Hypertension associated with diabetes (Multi) Expected: 04/07/2024 (Approximate), Expires: 01/05/2025 [facility] Work Phone: Comment on above: Expected: 04/07/2024 (Approximate), Expires: 01/05/2025 Start: 04-07-2024 End: 01-05-2025 Hemoglobin A1c/Hemoglobin.total in Blood Hemoglobin A1C Lab Routine Type 2 diabetes mellitus with hyperglycemia, without long-term current use of insulin Hypertension associated with diabetes (Multi) Expected: 04/07/2024 (Approximate), Expires: 01/05/2025 [facility] Work Phone: Comment on above: Expected: 04/07/2024 (Approximate), Expires: 01/05/2025 Start: 04-07-2024 End: 01-05-2025 Iron and Iron binding capacity panel - Serum or Plasma Iron and TIBC Lab Routine Type 2 diabetes mellitus with hyperglycemia, without long-term current use of insulin Elevated ferritin Hypertension associated with diabetes (Multi) Expected: 04/07/2024 (Approximate), Expires: 01/05/2025 [facility] Work Phone: Comment on above: Expected: 04/07/2024 (Approximate), Expires: 01/05/2025 Start: 04-07-2024 End: 01-05-2025 Lipid 1996 panel - Serum or Plasma Lipid Panel Lab Routine Type 2 diabetes mellitus with hyperglycemia, without long-term current use of insulin Hypertension associated with diabetes (Multi) Expected: 04/07/2024 (Approximate), Expires: 01/05/2025 [facility] Work Phone: Comment on above: Expected: 04/07/2024 (Approximate), Expires: 01/05/2025 Start: 04-07-2024 End: 01-05-2025 Magnesium [Mass/volume] in Serum or Plasma Magnesium Lab Routine Type 2 diabetes mellitus with hyperglycemia, without long-term current use of insulin Hypertension associated with diabetes (Multi) Expected: 04/07/2024 (Approximate), Expires: 01/05/2025 [facility] Work Phone: Comment on above: Expected: 04/07/2024 (Approximate), Expires: 01/05/2025 Start: 01-12-2024 End: 01-12-2024 Patient encounter procedure 01/12/2024 9:20 AM EST Office Visit [facility] [address] [place] [address] Niharika Ramirez, PAJuan LuisC [address] [place] [address] [facility] Start: 11-09-2023 COVID-19 Vaccine ( season) COVID-19 Vaccine ( season) [facility] Start: 11-09-2023 Influenza vaccination Influenza Vacc ine (#1) [facility] Start: 11-13-2022 Hemoglobin A1c measurement Diabetes: Hemoglobin A1C [facility] Start: 10-25-2021 FUV, Provider: Niharika Ramirez, Status: Pen, Time: 8:20 AM FUV, Provider: Niharika Ramirez, Status: Pen, Time: 8:20 AM [facility] Work Phone: Start: 06-28-2021 FUV, Provider: Niharika Ramirez, Status: Pen, Time: 8:40 AM FUV, Provider: Niharika Ramirez, Status: Pen, Time: 8:40 AM [facility] Work Phone: Start: 04-12-2021 FUV, Provider: Niharika Ramirez, Status: Pen, Time: 8:20 AM FUV, Provider: Niharika Ramirez, Status: Pen, Time: 8:20 AM [facility] Work Phone: Start: 2018 RSV High Risk: (Elde rly (60+) or Population) (1 - Risk 60-74 years 1-dose series) RSV High Risk: (Elderly (60+) or Population) (1 - Risk 60-74 years 1-dose series) [facility] Start: 01-23-2017 Pneumococcal Vaccine : 65+ Years (2 of 2 - PPSV23 or PCV20) Pneumococcal Vaccine: 65+ Years (2 of 2 - PPSV23 or PCV20) [facility] Start: 11-05-2012 IPV Vaccines (2 of 3 - Adult catch-up series) IPV Vaccines (2 of 3 - Adult catch-up series) [facility] Start: 01-25-1980 DTaP/Tdap/Td Vaccine s (1 - Tdap) DTaP/Tdap/Td Vaccines (1 - Tdap) [facility] Start: 1979 Screening for malign ant neoplasm of cervix [facility] Start: 1977 Urine screening for protein Diabetes: Urine Protein Screening [facility] Start: 01-25-1976 Hepatitis C screening Hepatitis C Sc reening [facility] Start: 01-25-1968 Glaucoma screening Diabetes: R etinopathy Screening [facility] Start: 1959 MMR Vaccines (1 of 1 - Standard series) MMR Vaccines (1 of 1 - Standard series) [facility] Start: 1958 Lipid panel Lipid Panel [facility] Start: 1958 Screening for malign ant neoplasm of colon [facility] Start: 1958 Yearly Adult Physical Yearly Adult P hysical [facility] Immunizations Immunization Date Immunization Notes Care Provider Fa cilieevr 12-11-2021 influenza, seasonal, injectable Niharika Ramirez PA-C Work Phone: [facility] Work Phone: 12-11-2021 influenza virus vaccine, unspecified formulation Niharika Ramirez PA-C Work Phone: [facility] Work Phone: 02-20-2021 Pfizer-BioNTech COVID-19 Vacc 30 MCG/0.3ML Intramuscular Suspension Niharika Ramirez Work Phone: [facility] Work Phone: 12-13-2020 influenza, seasonal, injectable, preservative free Niharika Ramirez Work Phone: [facility] Work Phone: 05-05-2020 zoster vaccine recombinant Niharika Ramirez Work Phone: [facility] Work Phone: 04-05-2020 Moderna COVID-19 Vaccine 100 MCG/0.5ML Intramuscular Suspension Niharika Ramirez Work Phone: [facility] Work Phone: 03-08-2020 Moderna COVID-19 Vaccine 100 MCG/0.5ML Intramuscular Suspension Niharika Ramirez Work Phone: [facility] Work Phone: 01-30-2020 zoster vaccine recombinant Niharika Ramirez Work Phone: [facility] Work Phone: 11-28-2016 influenza, injectabl e, quadrivalent, preservative free Niharika Ramirez Work Phone: [facility] Work Phone: 11-28-2016 pneumococcal conjuga te vaccine, 13 valent Niharika Ramirez Work Phone: [facility] Work Phone: 11-25-2013 influenza virus vaccine, whole virus Niharika Ramirez Work Phone: [facility] Work Phone: 04-16-2013 hepatitis A vaccine, adult dosage Niharika Ramirez Work Phone: [facility] Work Phone: 10-08-2012 hepatitis A vaccine, pediatric/adolescent dosage, 2 dose schedule Niharika Ramirez Work Phone: [facility] Work Phone: 10-08-2012 meningococcal ACWY vaccine, unspecified formulation Niharika Shannon James Work Phone: [facility] Work Phone: 10-08-2012 poliovirus vaccine, inactivated Niharika Shannon James Work Phone: [facility] Work Phone: 10-08-2012 typhoid vaccine, harsh e, oral Niharika Ramirez Work Phone: [facility] Work Phone: 10-08-2012 yellow fever vaccine Niharika Shannon James Work Phone: [facility] Work Phone: 10-08-2012 poliovirus vaccine, unspecified formulation Niharika Ramirez PA-C Work Phone: [facility] Work Phone: Payers Date Payer Category Payer [employer] Care [facility] [id number] 2023 Medicare MEDICARE PART A AND B [id number] 2023 Medicare [id number] 2023 Unknown [id number] 2022 Managed Care (Private) [facility] [id number] 2022 Unknown [id number] 2011 Unknown [id number] 1960 Unknown [id number] 1960 Unknown [id number] 1958 Unknown [id number] Unknown Social History Date Type Detail Facility Start: 10-02-2023 Never a smoker Never a smoker [facility] Work Phone: Start: 08-19-2022 Tobacco smoking stat NHIS Never smoked tobacco [facility] Work Phone: Start: 08-19-2022 Tobacco use and exposure Smokeless tobacco non-user [facility] Work Phone: Start: 01-06-2024 Alcoholic beverage intake Current drinker of alcohol (finding) [facility] Work Phone: Start: 10-02-2023 Tobacco use panel [facility] Work Phone: Start: 08-19-2022 Alcohol Comment TWICE A MONTH [facility] Work Phone: Start: 1960 Sex assigned at Not on file [facility] Work Phone: History of Present illness Narrative 01-06-2024 Niharika Ramirez PA-C - 01/06/2024 8:20 AM EDT Note Date & Type Note Facility 01-06-2024 History of Present illness Narrative Subjective Patient ID: Analia Mayer is a 63 y.o. 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 parents- stable other providers eye - Fall 2023 - follows with them typically every fall Dentist - pt goes every 6 mo preventative testing colonoscopy - june 2020-hx of hyperplastic polyp, fam hx of colon cancer repeat 5 years PAP - maybe 5 years ago - was WNL due -pt is putting on hold mammo -OCT 2023 DEXA - WNL - August 2022 Fall - Neg September 2023 PHQ2 NEG SEPTEMBER 2023 vaccines influenza-at work fall 2023 PNA- prevnair 13 4 years ago - due for pneumovax or prevnair 20 now Tdap- done in 2013?- suggest booster RSV - discussed need for vaccine Shingles- shingrix jan 2020 and apr 2020 MMR- discussed consider titer or booster given outbreak Hep B -pt states had vaccine done with work - consider titer COVID - Feb 2020 and Mar 2020 Patient Active Problem List Diagnosis Chronic low back pain Diuretic-induced hypokalemia DM2 (diabetes mellitus, type 2) (Multi) Hypercholesterolemia with hypertriglyceridemia Hypertension associated with diabetes (Multi) Mitral valve prolapse Polyp of colon Other fatigue Elevated ferritin Class 1 obesity due to excess calories with serious comorbidity and body mass index (BMI) of 32.0 to 32.9 in adult Elevated LFTs Review of Systems Constitutional: Negative for chills, fatigue and fever. HENT: Negative for congestion, rhinorrhea, sinus pain, sore throat and tinnitus. Eyes: Negative for discharge, redness and visual disturbance. Respiratory: Negative for cough, chest tightness, shortness of breath and wheezing. Cardiovascular: Negative for chest pain, palpitations and leg swelling. Gastrointestinal: Negative for abdominal pain, constipation, diarrhea, nausea and vomiting. Endocrine: Negative for cold intolerance and heat intolerance. Genitourinary: Negative for flank pain, frequency and urgency. Musculoskeletal: Negative for back pain, gait problem and neck pain. Skin: Negative for rash and wound. Neurological: Negative for dizziness, tremors, syncope, numbness and headaches. Hematological: Does not bruise/bleed easily. Psychiatric/Behavioral: Negative for confusion, sleep disturbance and suicidal ideas. Past Medical History: Diagnosis Date Abnormal levels of other serum enzymes 11/23/2018 Elevated liver enzymes Personal history of other medical treatment H/O mammogram Past Surgical History: Procedure Laterality Date BREAST BIOPSY Left 2008 COLONOSCOPY 07/06/2020 REPEAT 5 YEARS. RECTUM, POLYPECTOMY: --HYPERPLASTIC POLYP ENDOMETRIAL ABLATION TONSILLECTOMY Family History Problem Relation Name Age of Onset Thyroid disease Mother Coronary artery disease Father Diabetes Father Colon cancer Other GRANDPARENT Social History Tobacco Use Smoking status: Never Smokeless tobacco: Never Vaping Use Vaping status: Never Used Substance Use Topics Alcohol use: Yes Comment: TWICE A MONTH Drug use: Never Allergies Allergen Reactions Zolmitriptan Palpitations Current Outpatient Medications Medication Sig Dispense Refill amLODIPine (Norvasc) 10 mg tablet Take 1 tablet (10 mg) by mouth once daily. 90 tablet 3 aspirin 81 mg EC tablet Take 1 tablet (81 mg) by mouth once daily. atenolol (Tenormin) 50 mg tablet Take 1 tablet (50 mg) by mouth once daily. 90 tablet 3 calcium carbonate-vitamin D3 600 mg-25 mcg (1,000 unit) capsule Take by mouth early in the morning.. hydroCHLOROthiazide (Microzide) 12.5 mg tablet Take 1 tablet (12.5 mg) by mouth once daily. 90 tablet 3 lisinopril 20 mg tablet Take 1 tablet (20 mg) by mouth 2 times a day. 180 tablet 3 multivitamin tablet Take 1 tablet by mouth once daily. potassium chloride CR 20 mEq ER tablet Take 1 tablet (20 mEq) by mouth 3 times a day. Do not crush or chew. 270 tablet 3 psyllium husk, aspartame, (Metamucil Sugar-Free, aspart,) 3.4 gram/5.8 gram powder Take by mouth early in the morning.. SITagliptin phosphate (Januvia) 100 mg tablet Take 1 tablet (100 mg) by mouth once daily. 90 tablet 3 VITAMIN E ACETATE ORAL Take 1 tablet by mouth once daily. No current facility-administered medications for this visit. Objective BP 138/88 (BP Location: Right arm, Patient Position: Sitting) Pulse 81 Ht 1.753 m (5' 9 ) Wt 95.9 kg (211 lb 6.4 oz) BMI 31.22 kg/m Physical Exam Vitals reviewed. Constitutional: Appearance: Normal appearance. She is obese. HENT: Head: Normocephalic. Right Ear: External ear normal. Left Ear: External ear normal. Nose: Nose normal. No congestion or rhinorrhea. Mouth/Throat: Mouth: Mucous membranes are moist. Eyes: Extraocular Movements: Extraocular movements intact. Conjunctiva/sclera: Conjunctivae normal. Pupils: Pupils are equal, round, and reactive to light. Cardiovascular: Rate and Rhythm: Normal rate and regular rhythm. Pulses: Normal pulses. Pulmonary: Effort: Pulmonary effort is normal. Breath sounds: Normal breath sounds. Abdominal: General: Bowel sounds are normal. Palpations: Abdomen is soft. Tenderness: There is no abdominal tenderness. There is no right CVA tenderness or left CVA tenderness. Musculoskeletal: General: No tenderness. Normal range of motion. Cervical back: Normal range of motion and neck supple. No tenderness. Skin: General: Skin is warm and dry. Neurological: General: No focal deficit present. Mental Status: She is alert and oriented to person, place, and time. Psychiatric: Mood and Affect: Mood normal. Behavior: Behavior normal. Testing Lab [facility] September 2023 CBC - Wnl CMP -glucose 323* -AST 55* -ALT 99* Hga1c 10.2* Lipid -tchol- 251* -TG 260* -HDL 35* -LDL - 164* Ferritin 478* B12 1105 Impression MDM 1) COMPLEXITY: MORE THAN 1 STABLE CHRONIC CONDITION ADDRESSED 2)DATA: TESTS INTERPRETED AND OR ORDERED, TOOK INDEPENDENT HISTORY OR RECORDS REVIEWED 3)RISK: MODERATE RISK DUE TO NATURE OF MEDICAL CONDITIONS/COMORBIDITY OR MEDICATIONS ORDERED OR SURGICAL OR PROCEDURE REFERRAL, . Reviewed labs and Testing on file Patient to follow diet low in cholesterol, fat, and sodium. Patient is advised to increase Exercise. Patient is recommended to lose weight. Reviewed Meds and discussed common side effects Continue as directed Discussed approp preventative testing, vaccines and recommendations Patient is strongly advised to be compliant with recommendations. Return to Clinic sooner if needed. Patient denies further questions/concerns at this time : Assessment/Plan Problem List Items Addressed This Visit ICD-10-CM DM2 (diabetes mellitus, type 2) (Multi) E11.9 Relevant Orders CBC and Auto Differential Comprehensive Metabolic Panel Hemoglobin A1C Lipid Panel Iron and TIBC Ferritin Magnesium Vitamin B12 Hypercholesterolemia with hypertriglyceridemia E78.2 Hypertension associated with diabetes (Multi) E11.59, I15.2 Relevant Orders CBC and Auto Differential Comprehensive Metabolic Panel Hemoglobin A1C Lipid Panel Iron and TIBC Ferritin Magnesium Vitamin B12 Elevated ferritin R79.89 Relevant Orders CBC and Auto Differential Iron and TIBC Ferritin Other Visit Diagnoses Codes Encounter for wellness examination in adult - Primary Z00.00 FU in 3-6 mo with labs at [facility] and med check documented in this encounter [facility] Work Phone: Evaluation note Note Date & Type Note Facility Evaluation note Diagnosis Encounter for wellness examination in adult- Primary Hypercholesterolemia with hypertriglyceridemia Type 2 diabetes mellitus with hyperglycemia, without long-term current use of insulin Elevated ferritin Other abnormal blood chemistry Hypertension associated with diabetes (Multi) Unspecified essential hypertension documented in this encounter [facility] Work Phone: History of Present illness Narrative Note Date & Type Note Facility History of Present illness Narrative pt presents today for...1 wellnesslabs- up to date - done at [facility]- reviewed --DM - stable on medsother [facility]seye - Fall 2019 - follows with them typically every fallDentist - pt goes every 6 mopreventative testingcolonoscopy - june 2020-hx of hyperplastic polyp, fam hx of colon cancer repeat 5 yearsPAP - maybe 5 years ago - was WNL due -pt is putting on holdmammo -nov 2018 - WNlDEXA - WNL - September 2017vaccinesinfluenza- pt gets every fall at workPNA- prevnair 13 4 years ago - due for pneumovax nowTdap- done in 2010 and maybe booster since she thinksShingles- shingris jan 2020 and apr 2020MMR- discussed consider titer or booster given outbreakHep B -pt states had vaccine done with workCOVID - Feb 2020 and Mar 2020 -[facility] Work Phone: History of Present illness Narrative Note Date & Type Note Facility History of Present illness Narrative pt presents today for...1 wellnesslabs- up to date - done at [facility]- reviewed --DM - stable on medsother providerseye - Fall 2019 - follows with them typically every fallDentist - pt goes every 6 mopreventative testingcolonoscopy - june 2020-hx of hyperplastic polyp, fam hx of colon cancer repeat 5 yearsPAP - maybe 5 years ago - was WNL due -pt is putting on holdmammo -nov 2018 - WNl- agreeable to updatedDEXA - WNL - September 2017vaccinesinfluenza- pt gets every fall at workPNA- prevnair 13 4 years ago - due for pneumovax nowTdap- done in 2010 and maybe booster since she thinksShingles- shingris jan 2020 and apr 2020MMR- discussed consider titer or booster given outbreakHep B -pt states had vaccine done with workCOVID - Feb 2020 and Mar 2020 [facility] Work Phone: History of Present illness Narrative Note Date & Type Note Facility History of Present illness Narrative pt presents today for...1 wellnesslabs- up to date - done at [facility]- reviewed --DM - not to goalother providerseye - Fall 2020 - follows with them typically every fallDentist - pt goes every 6 mopreventative testingcolonoscopy - june 2020-hx of hyperplastic polyp, fam hx of colon cancer repeat 5 yearsPAP - maybe 5 years ago - was WNL due -pt is putting on holdmammo -nov 2018 - WNl- agreeable to updatedDEXA - WNL - September 2017vaccinesinfluenza- pt gets every fall at workPNA- prevnair 13 4 years ago - due for pneumovax nowTdap- done in 2014?Shingles- shingrix jan 2020 and apr 2020MMR- discussed consider titer or booster given outbreakHep B -pt states had vaccine done with workCOVID - Feb 2020 and Mar 2020 [facility] Work Phone: History of Present illness Narrative Note Date & Type Note Facility History of Present illness Narrative pt presents today for...1 wellness for work - [facility]- up to date - done at [facility]- reviewed --DM - not to goalother providerseye - Fall 2020 - follows with them typically every fallDentist - pt goes every 6 mopreventative testingcolonoscopy - june 2020-hx of hyperplastic polyp, fam hx of colon cancer repeat 5 yearsPAP - maybe 5 years ago - was WNL due -pt is putting on holdmammo -nov 2018 - WNl- agreeable to updatedDEXA - WNL - September 2017vaccinesinfluenza- pt gets every fall at workPNA- prevnair 13 4 years ago - due for pneumovax nowTdap- done in 2013?Shingles- shingrix jan 2020 and apr 2020MMR- discussed consider titer or booster given outbreakHep B -pt states had vaccine done with workCOVID - Feb 2020 and Mar 2020 [facility] Work Phone: Summary Purpose Family History Unknown Family Member Name Dates Details Family history of thyroid di sease: Mother(V18.19, Z83.49) Status:Active Family history of coronary a rtery disease: Father(V17.3, Z82.49) Status:Active Family history of type 2 danie betes mellitus: Father(V18.0, Z83.3) Status:Active Primary malignant neoplasm o f colon: Grandparent Status:Active Unknown Family Member Name Dates Details Family history of thyroid di sease: Mother(V18.19, Z83.49) Status:Active Family history of coronary a rtery disease: Father(V17.3, Z82.49) Status:Active Family history of type 2 danie betes mellitus: Father(V18.0, Z83.3) Status:Active Primary malignant neoplasm o f colon: Grandparent Status:Active Unknown Family Member Name Dates Details Family history of thyroid di sease: Mother(V18.19, Z83.49) Status:Active Family history of coronary a rtery disease: Father(V17.3, Z82.49) Status:Active Family history of type 2 danie betes mellitus: Father(V18.0, Z83.3) Status:Active Primary malignant neoplasm o f colon: Grandparent Status:Active Unknown Family Member Name Dates Details Primary malignant neoplasm o f colon: Grandparent Status:Active Family history of type 2 danie betes mellitus: Father(V18.0, Z83.3) Status:Active Family history of coronary a rtery disease: Father(V17.3, Z82.49) Status:Active Family history of thyroid di sease: Mother(V18.19, Z83.49) Status:Active Unknown Family Member Name Dates Details Primary malignant neoplasm o f colon: Grandparent Status:Active Family history of type 2 danie betes mellitus: Father(V18.0, Z83.3) Status:Active Family history of coronary a rtery disease: Father(V17.3, Z82.49) Status:Active Family history of thyroid di sease: Mother(V18.19, Z83.49) Status:Active Unknown Family Member Name Dates Details Primary malignant neoplasm o f colon: Grandparent Status:Active Family history of type 2 danie betes mellitus: Father(V18.0, Z83.3) Status:Active Family history of coronary a rtery disease: Father(V17.3, Z82.49) Status:Active Family history of thyroid di sease: Mother(V18.19, Z83.49) Status:Active Unknown Family Member Name Dates Details Family history of thyroid di sease: Mother(V18.19, Z83.49) Status:Active Family history of coronary a rtery disease: Father(V17.3, Z82.49) Status:Active Family history of type 2 danie betes mellitus: Father(V18.0, Z83.3) Status:Active Primary malignant neoplasm o f colon: Grandparent Status:Active Unknown Family Member Name Dates Details Family history of thyroid di sease: Mother(V18.19, Z83.49) Status:Active Family history of coronary a rtery disease: Father(V17.3, Z82.49) Status:Active Family history of type 2 danie betes mellitus: Father(V18.0, Z83.3) Status:Active Primary malignant neoplasm o f colon: Grandparent Status:Active Unknown Family Member Name Dates Details Family history of thyroid di sease: Mother(V18.19, Z83.49) Status:Active Family history of coronary a rtery disease: Father(V17.3, Z82.49) Status:Active Family history of type 2 danie betes mellitus: Father(V18.0, Z83.3) Status:Active Primary malignant neoplasm o f colon: Grandparent Status:Active Unknown Family Member Name Dates Details Family history of thyroid di sease: Mother(V18.19, Z83.49) Status:Active Family history of coronary a rtery disease: Father(V17.3, Z82.49) Status:Active Family history of type 2 danie betes mellitus: Father(V18.0, Z83.3) Status:Active Primary malignant neoplasm o f colon: Grandparent Status:Active Unknown Family Member Name Dates Details Family history of thyroid di sease: Mother(V18.19, Z83.49) Status:Active Family history of coronary a rtery disease: Father(V17.3, Z82.49) Status:Active Family history of type 2 danie betes mellitus: Father(V18.0, Z83.3) Status:Active Primary malignant neoplasm o f colon: Grandparent Status:Active Unknown Family Member Name Dates Details Family history of thyroid di sease: Mother(V18.19, Z83.49) Status:Active Family history of coronary a rtery disease: Father(V17.3, Z82.49) Status:Active Family history of type 2 danie betes mellitus: Father(V18.0, Z83.3) Status:Active Primary malignant neoplasm o f colon: Grandparent Status:Active Advance Directives Healthcare Agents on File Name Relationship Healthcare Agent Relationship Communication Berenice Guerline Humphriesswethakem Daughter Health Care Agent Chief Complaint WELLNESS WITH LABS FOR WORK. NO COMPLAINTSWELLNESS WITH LABS FOR WORK. NO COMPLAINTSWELLNESS FOR WORK WITH LABSWELLNESS FOR WORK WITH LABS Additional Source Comments INFORMATION SOURCE (unrecogn ized section and content) DATE CREATED AUTHOR 11/27/2018 [facility] DATE CREATED AUTHOR AUTHOR'S ORGANIZ ATION 06/30/2021 [facility] DATE CREATED AUTHOR AUTHOR'S ORGANIZ ATION 07/01/2021 [employer] DATE CREATED AUTHOR AUTHOR'S ORGANIZ ATION 08/31/2022 [facility] DATE CREATED AUTHOR AUTHOR'S ORGANIZ ATION 10/21/2023 [facility] DATE CREATED AUTHOR AUTHOR'S ORGANNORMA ATION 11/26/2023 [facility] Reason for Visit (unrecogniz ed section and content) Reason Comments Follow-up WELLNESS EXAM Care Teams (unrecognized sec tion and content) Shift Nurse Manager Relationship Specialty Start Date End Date Niharika Ramirez, JOHNY [address] [place] [address] PCP - General 11/20/18 FOR RECORDS PERTAINING TO PATIENTS WHO ARE OR HAVE BEEN ENROLLED IN A CHEMICAL DEPENDENCY/SUBSTANCEABUSE PROGRAM, SOME INFORMATION MAY BE OMITTED. This clinical summary was aggregated from multiple sources. Caution should be exercised in using it in the provision of clinical care. This summary normalizes information from multiple sources, and as a consequence, information in this document may materially change the coding, format and clinical context of patient data. In addition, data may be omitted in some cases. CLINICAL DECISIONS SHOULD BE BASED ON THE PRIMARY CLINICAL RECORDS. [facility] [employer] provides no warranty or guarantee of the accuracy or completeness of information in this document.
== END | disposition home or self-care (01) ==
PROVIDERS: PCP Internal Medicine; Referring Provider Physician Assistant Medical; Visit Provider Physician Assistant Medical
DX: E11.65 Type 2 diabetes mellitus with hyperglycemia (principal); R79.89 Other specified abnormal findings of blood chemistry
CPT/HCPCS: 36415; 80053; 82043; 82570; 82607; 82728; 83036; 83540; 83550; 83735; 84439; 84443; 85025

== ENCOUNTER 2024-01-21 23:07 | Emergency (ER) | payer OTHER, MEDICARE, BC, SELFPAY ==
[2024-01-21 23:08] VITALS: BP 148/87; PULSE 70; RESP 18; TEMP 36.6; O2SAT 100
[2024-01-21 23:10] VITALS: O2SAT 99; BMI 35.8
--- NOTE | 2024-01-21 23:28 | RAD_ITS ---
INDICATION: pain EXAMINATION/TECHNIQUE: X-RAY - RIGHT XR Knee Complete 4 Views or More 5 VIEWS COMPARISON: No relevant prior comparison study available FINDINGS: BONES: No fracture demonstrated. Degenerative changes mostly at the patellofemoral compartment. JOINTS: No dislocation. SOFT TISSUES: Unremarkable. RAD/Knee 4 or More Views IMPRESSION: No evidence of fracture. Electronically Signed: Kaelyn Osei MD at 0:38 EST ,
--- NOTE | 2024-01-21 23:28 | RAD_ITS ---
INDICATION: pain EXAMINATION/TECHNIQUE: X-RAY - RIGHT XR Wrist Min 3 Views 3 VIEWS COMPARISON: No relevant prior comparison study available FINDINGS: BONES: Questionable scaphoid fracture. Lucency on the lateral view dorsally suspect triquetral fracture. JOINTS: No dislocation. SOFT TISSUES: Soft tissue swelling. RAD/Wrist min 3 Views IMPRESSION: Probable triquetral fracture. Questionable scaphoid fracture. CT may be helpful if clinically indicated. Electronically Signed: Kaelyn Osei MD at 0:35 EST ,
--- NOTE | 2024-01-21 23:30 | RAD_ITS ---
INDICATION: pain EXAMINATION/TECHNIQUE: X-RAY - LEFT XR Knee Complete 4 Views or More 4 VIEWS COMPARISON: No relevant prior comparison study available FINDINGS: BONES: Acute fracture of patella without significant displacement. JOINTS: No dislocation. SOFT TISSUES: Moderate joint effusion. RAD/Knee 4 or More Views IMPRESSION: Patellar fracture. Joint effusion. Electronically Signed: Kaelyn Osei MD at 0:37 EST ,
--- NOTE | 2024-01-21 23:30 | EX.ED.DYSGE1 ---
HPI History of Present Illness Chief Complaint: Fall Informant: patient and spouse/S.O. Narrative Narrative: Patient is a 63-year-old female with past medical history of hypertension. She is right-hand dominant. She states that she worked all night and then went to an outside hospital where her father has been at. She states after being with him throughout the day she left to go home and as she was walking out she misjudged the height of the curb and fell. She states she landed on both knees and her right hand/arm was outstretched in order to prevent injuring her head/face. She denies hitting her head any LOC or history of bleeding disorder or blood thinner use. She was able to get back up and ambulate and went home and ate dinner and took [id number] medication. However after a few hours pain seem to be worsening and with concern for underlying injury was brought in for evaluation. [facility] Medical History Hypertension Home Medications ?Medication ?Instructions ?Recorded ?Last Taken ?Type atenolol 50 mg tablet 50 mg PO DAILY 11/06/20 Unknown History hydrochlorothiazide 12.5 mg tablet 12.5 mg PO DAILY 11/06/20 Unknown History lisinopril 20 mg tablet 20 mg PO BID 11/06/20 Unknown History potassium chloride 20 mEq 20 meq PO DAILY 11/06/20 Unknown History tablet,extended release(part/cryst) (Klor-Con M) aspirin 81 mg chewable tablet 81 mg PO DAILY 11/07/20 Unknown History calcium carbonate (Calcium 500) 500 mg PO DAILY 12/06/20 Unknown History multivitamin (Multiple Vitamins 1 tab PO DAILY 12/06/20 Unknown History tablet) diazepam 2 mg tablet (Valium) 2 mg PO TID PRN muscle spasm #20 01/02/21 Unknown Rx tabs hydrocodone-acetaminophen 5-325mg 1 tab PO Q4H PRN PRN Pain 3 days 01/02/21 Unknown Rx 5mg-325mg #15 TABLETS cyclobenzaprine 10 mg tablet 10 mg PO TID PRN muscle spasm #30 01/03/21 Unknown Rx tabs prednisone 10 mg tablet 10 mg PO DAILY #30 tabs 01/03/21 Unknown Rx cyclobenzaprine 10 mg tablet 10 mg PO TID PRN muscle spasm #30 01/18/21 Unknown Rx tabs prednisone 10 mg tablet 10 mg PO DAILY #30 tabs 01/18/21 Unknown Rx empagliflozin 10 mg tablet 10 mg PO DAILY 01/21/24 Unknown History (Jardiance) ondansetron 4 mg disintegrating 4 mg PO TID PRN nausea and 01/22/24 Unknown Rx tablet vomiting #21 tabs oxycodone 5 mg tablet 5 mg PO Q6H PRN pain 5 days #20 01/22/24 Unknown Rx tabs Allergy/AdvReac Type Severity Reaction Status Date / Time zolmitriptan (From Zomig) Allergy Palpitation Verified 01/21/24 23:10 s Family History Mother Thyroid disorder Father Thyroid disorder Family history of CABG Surgical History Hx of tonsillectomy S/P breast biopsy Social History household members: none housing: house current occupational status: employed 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 [employer] pets and animals: No Smoking Status: Never smoker alcohol intake: current alcohol intake frequency: holidays/special occasions only substance use type: does not use caffeine: Yes what type of physical activity do you participate in: none seatbelt use: always do you feel safe at home: Yes ROS ROS ED Constitutional Constitutional ED: Denies chills or fever(s) Eyes Eyes: Denies blurry vision, change in vision or diplopia ENT ENT ED: Denies sore throat Cardiovascular Cardiovascular: Reports other Details: Negative syncope ; Denies chest pain Respiratory/Chest Respiratory/Chest: Denies cough or dyspnea Gastrointestinal Gastrointestinal: Denies abdominal pain, diarrhea, nausea or vomiting Musculoskeletal Musculoskeletal: Reports other Details: Positive right wrist and bilateral knee pain ; Denies back pain or neck pain Integumentary Reports Abrasions Neurologic Neurologic: Denies headache(s), paresthesias or weakness Hematologic/Lymphatic Hematologic/Lymphatic: Denies easy bleeding or easy bruising EXAM Physical Exam Const Vital Signs: 01/21/24 23:08 01/21/24 23:10 01/22/24 02:26 Temperature 97.9 F 98.2 F Temperature Source Temporal Pulse Rate 70 81 Respiratory Rate 18 16 Respiratory Effort Normal Non-Labored Respiratory Depth Normal Respiratory Pattern Normal Blood Pressure 148/87 H 137/79 H Blood Pressure Mean 107 98 Pulse Ox 100 99 99 Oxygen Delivery Method Room Air Room Air Positive well nourished and well developed General Appearance ED: well developed; Negative for pallor HEENT HEENT Narrative: Normocephalic atraumatic Eyes PERRL and EOMs intact bilaterally General Eye ED: Negative for scleral icterus Neck supple Neck Narrative: No bony deformity or step-off of the cervical spine no midline tenderness to palpation Resp normal respiratory effort and clear to auscultation bilaterally Cardio regular rate and regular rhythm Rate: other Other Details: Grade 3 out of 6 systolic murmur Otherwise heart is regular rate and rhythm Extremity Extremity Narrative: Bilateral upper extremities are neurovascularly intact; AIN/PIN are intact and normal. Patient has soft tissue swelling to the dorsal aspect of the right hand/wrist. Active range of motion is decreased secondary to pain. There is no obvious bony deformity or joint effusion or ligamentous laxity. However there is pain with palpation in the right anatomical snuffbox Pelvis is stable and there is no shortening or external rotation of either lower extremity. Bilateral lower extremities are neurovascularly intact Patient has a superficial abrasion and mild soft tissue swelling to the anterior aspect of the right knee over top the patella. Otherwise there is no signs of ligamentous injury or patella tendon rupture. Left lower extremity has a joint effusion. There is laxity with a positive [place]'s test concerning for ACL injury. The patellar tendon is intact. No obvious bony deformity noted. Neuro oriented x3, CN's II-XII intact bilaterally and no sensory deficits noted Sensorium / Orientation: alert Psych mental status grossly normal Skin no rashes or lesions noted Skin Narrative: Superficial abrasion to the right knee as documented above with joint effusion to the left knee and soft tissue swelling of the right wrist General Skin Exam: Negative for jaundice or pallor MDM MDM MDM Narrative Medical decision making narrative: Patient arrived to the ER mildly hypertensive but has a past medical history of this. She reported a mechanical fall and therefore there is no need for cardiac or syncope workup. She did not strike her head nor is a loss of consciousness nor does she report taking a blood thinner or having bleeding disorder so I felt no need for a head or cervical spine CT as I have low concern for traumatic subarachnoid or subdural hematoma or cervical compression fracture. With soft tissue swelling and fall on outstretched hand there is concern for a scaphoid fracture especially as patient has pain with palpation in the anatomical snuffbox. An x-ray was obtained of the right wrist to check for this and there is no obvious fracture of the scaphoid bone. The radiologist does note however triquetral fracture and states there is a potential scaphoid injury and recommend CT scan. Therefore this was obtained of the right wrist and confirms just a triquetral fracture and therefore I feel patient is safe for thumb spica splint for immobilization at this time. X-ray of the bilateral knees were obtained based on her fall and pain in the right knee does not reveal any sign of injury or joint effusion. Left knee however does show a acute patellar fracture. There is no skin tenting and as she is closed and neurovascularly intact without tendon rupture there is no need for emergent orthopedic consultation and patient can be discharged symptomatic care and follow-up with orthopedics as an outpatient. History & Record Review Discussion w/independent historian: Patient and Significant other Radiography Diagnostic Testing: Clinical Impression(s) from Imaging Studies Knee X-Ray 01/21/24 23:28 IMPRESSION: No evidence of fracture. Electronically Signed: Kaelyn Osei MD at 0:38 EST Reading Location ID and State: [facility] ([facility]) / [email or web address] Tel , Service support , Wrist X-Ray 01/21/24 23:28 IMPRESSION: Probable triquetral fracture. Questionable scaphoid fracture. CT may be helpful if clinically indicated. Electronically Signed: Kaelyn Osei MD at 0:35 EST Reading Location ID and State: [facility] ([facility]) / [place] Tel , Service support , Knee X-Ray 01/21/24 23:30 IMPRESSION: Patellar fracture. Joint effusion. Electronically Signed: Kaelyn Osei MD at 0:37 EST Reading Location ID and State: [facility] ([facility]) / [place] Tel , Service support , Upper Extremity CT 01/22/24 00:42 IMPRESSION: Acute triquetral fracture. Electronically Signed: Kaelyn Osei MD at 1:38 EST , X-ray of the right wrist as interpreted by the emergency medicine physician reveals a triquetral fracture without dislocation or joint effusion X-ray of the right knee as interpreted by the emergency medicine physician reveals no acute fracture or dislocation X-ray of the left knee as interpreted by the emergency medicine physician reveals acute nondisplaced patellar fracture with joint effusion Discharge Plan Triage Chief Complaint: Fall ED Provider: Regulo Hunt Dx/Rx/DC Orders Clinical Impression: Fracture of triquetral bone of right wrist, Patellar fracture, Effusion of knee joint, left, Hypertension, Accidental fall Instructions: ED Knee Effusion, ED Patella Fracture, ED Fracture, Wrist, General Prescriptions: New oxycodone 5 mg tablet 5 mg PO Q6H PRN (Reason: pain) 5 Days Qty: 20 0RF ondansetron 4 mg tablet,disintegrating 4 mg PO TID PRN (Reason: nausea and vomiting) Qty: 21 0RF No Action aspirin 81 mg tablet,chewable 81 mg PO DAILY multivitamin [Multiple Vitamins] Tablet 1 tab PO DAILY calcium carbonate [Calcium 500] 500 mg calcium (1,250 mg) tablet 500 mg PO DAILY prednisone 10 mg tablet 10 mg PO DAILY Qty: 30 0RF Rx Instructions: 4 tablets daily for 3 days, then 3 tablets daily for 3 days, then 2 tablets daily for 3 days, then 1 tablet daily for 3 days cyclobenzaprine 10 mg tablet 10 mg PO TID PRN (Reason: muscle spasm) Qty: 30 0RF Rx Instructions: only AFTER work hours on work days lisinopril 20 mg tablet 20 mg PO BID potassium chloride [Klor-Con M20] 20 mEq tablet,ER particles/crystals 20 meq PO DAILY atenolol 50 mg tablet 50 mg PO DAILY hydrochlorothiazide 12.5 mg tablet 12.5 mg PO DAILY hydrocodone-acetaminophen [hydrocodone-acetaminophen] 1 TABLET tablet 1 tab PO Q4H PRN PRN (Reason: Pain) 3 Days Qty: 15 0RF diazepam [Valium] 2 mg tablet 2 mg PO TID PRN (Reason: muscle spasm) Qty: 20 0RF Jardiance 10 mg tablet 10 mg PO DAILY prednisone 10 mg tablet 10 mg PO DAILY Qty: 30 0RF Rx Instructions: 4 tablets daily for 3 days, then 3 tablets tablets daily for 3 days, then 2 tablets daily for 3 days, then 1 tablet daily for 3 days cyclobenzaprine 10 mg tablet 10 mg PO TID PRN (Reason: muscle spasm) Qty: 30 0RF Stand Alone Forms: ED Work / School Excuse Primary Care Provider: Tina Dalton Referrals: Tina Dalton MD [Primary Care Provider] - Jim Hough MD [Med Staff - Active Staff] - Activity Restrictions/Additional Instructions: Please follow-up with orthopedics to discuss further treatment for your knee And wrist fracture. Until that time please wear your Vinny wrap and braces to help stabilize the fractures. Return to the ER should you have any further concerns or worsening of symptoms Print Language: [place] Citizen Disposition Disposition: Home, Self Care Discharge Date/Time: 01/22/24 02:29
[2024-01-21] MEDS: Ondansetron ODT 4 MG Tablet PO (23:37)
[2024-01-21] MEDS: Morphine 4 MG/ML Syringe 6 MG IM (23:38)
--- NOTE | 2024-01-22 00:42 | CT_ITS ---
EXAM: CT Upper Extremity W/O Contrast Injection RIGHT HISTORY: wrist injury TECHNIQUE: Axial images obtained through the wrist without IV contrast. Sagittal and coronal reformats were provided. IV Contrast: None.. RADIATION DOSAGE (If Supplied By Facility): CTDIvol = ( 24.58 ) mGy, DLP = ( 400.81 ) mGycm Individualized dose optimization techniques were used for this CT. COMPARISON: Right wrist x-rays 01/21/2024. LIMITATIONS: Suboptimal positioning and imaging planes. FINDINGS: Acute fracture triquetrum minimally displaced. No other fracture demonstrated. No scaphoid fracture identified. No dislocation. Soft tissue swelling most pronounced dorsally. CT/Extremity Upper without Contra IMPRESSION: Acute triquetral fracture. Electronically Signed: Kaelyn Osei MD at 1:38 EST ,
[2024-01-22] MEDS: oxyCODONE 5 MG Tablet 10 MG PO (02:09)
[2024-01-22 02:26] VITALS: BP 137/79; PULSE 81; RESP 16; TEMP 36.8; O2SAT 99
== END 2024-01-22 02:29 | disposition home or self-care (01) ==
PROVIDERS: Emergency Provider Emergency Medicine; PCP Internal Medicine; Visit Provider Emergency Medicine
DX: S62.91XA Unspecified fracture of right hand, initial encounter for closed fracture (principal); S82.002A Unspecified fracture of left patella, initial encounter for closed fracture; W10.1XXA Fall (on)(from) sidewalk curb, initial encounter; I10 Essential (primary) hypertension; M25.462 Effusion, left knee; Z79.899 Other long term (current) drug therapy
CPT/HCPCS: 73110; 73200; 73564; 96372; 99284

== ENCOUNTER 2024-04-15 08:30 | Outpatient (RCR) | payer OTHER, MEDICARE, BC, SELFPAY ==
--- NOTE | 2024-02-10 09:04 | HP.PTEVAL_ITS ---
Patient's Visit Information Visit Information Visit Information: LINK MAYER is a 64 year old F referred to Physical Therapy by Dr. Jim Hough MD with a diagnosis of fx of patella R. Date of Evaluation: 02/10/24 Physical Therapist: DIMITRIS Coto Visit Plan Frequency: 2x /Week Duration: 2 Months Plan: Restrictions L knee flex to 90 degrees over next 4 weeks and walk with brace on in extension 2X/ week for 8 weeks for L knee AROM to 90 degrees flexion and 0 degrees ext, strengthening of the L hip and knee, and ankle, progressive WB with brace locked into extension, gait training with brace locked in extension with HEP HEP: SLR, S/L hip abd, prone hip ext, heel slides seated and supine to 90 degrees, QS Subjective Subjective: Pt tripped up a crub 01/20 and landed on all 4's and her R wrist is broken and in a cast and L knee cap is broken. They did not do surgery. She is in a leg brace and is now allowed to open her brace up to 90 degrees. She is now able to get rid of the crutches when she is ready too. She has not really bent the knee. She takes the brace off to sit in a chair at night. She has to sleep with the brace on because she tosses and turns so much. She is staying with someone and has 3 steps to get in with a railing. She is going up with the good and down with the bad leg. She is sleeping good at night. She is not driving yet. She has used the cane in the house but goes out with 1 crutch. She is off work for 6-12 weeks. Objective Objective: Gait: walks with crutch under L arm due to R arm being casted and knee brace locked in extension on the L with decreased WB on the L and decreased stride length L knee 0-45 degrees L knee flexion R knee AROM 0-130 MMT: R hip ext 11.7 and L 9 R hip abd 11.5 and L 7 R knee ext 28.9 and L NT R knee flex 15.8 and L NT Pt is unable to sit with knee at 90 degrees on the L Pt is able to SLR with some discomfort Balance/Special Test Scores Lower Extremity Functional Score: 21 Goals Goal 1:: I HEP Goal Time Frame: 6-8 Weeks Goal 2:: Increase L knee AROM to equal that of the R (at the time of the eval pt ROM was L knee 0-45 degrees L knee flexion R knee AROM 0-130) Goal Time Frame: 6-8 Weeks Goal 3:: Be able to walk with no antalgic gait Goal Time Frame: 6-8 Weeks Goal 4:: Be able to go up and down the steps recip with 1 hand rail if needed with ease and no hesitation Rehabilitation Potential Rehabilitation Potential: Good Anticipated Interventions Patient/Client Instruction: Educate patient on: Condition and Plan of Care For the Purpose of:: To decrease pain, To increase ROM, To improve nutrient delivery to tissue, To improve muscle performance and motor function, To improve ability to perform ADL's, To increase tolerance to activity/condition/position, To improve performance and independence with ADL's, To decrease level of supervision to perform tasks, To improve ability of physical actions for home/ community/work/leisure, To improve gait and locomotor functions, To improve health of tissue, To decrease soft tissue restriction, To increase flexibility/ROM, To improve endurance and To improve safety with gait Therapeutic Exercise to Include: Strength training, Endurance training, Body mechanics, Postural training, Flexibilty training, Gait and locomotor training, Passive ROM and Active ROM For the Purpose of:: To decrease pain, To increase ROM, To improve nutrient delivery to tissue, To increase oxygenation perfusion, To improve muscle perfor agata and motor function, To improve ability to perform ADL's, To increase tolerance to activity/condition/position, To improve performance and independence with ADL's, To decrease level of supervision to perform tasks, To improve ability of physical actions for home/community/work/leisure, To improve gait and locomotor functions, To improve health of tissue, To decrease soft tissue restriction, To increase flexibility/ROM, To improve endurance and To improve balance Functional Training to Include: Gait training For the Purpose of:: To improve gait and locomotor functions Text: Thank you for the opportunity to evaluate your patient. For Medicare and Medicare HMO plans, please review the plan of care and approve it. It will need to be FAXED BACK to us at [phone] for Medicare purposes. For Medicare only, by signing this I certify the plan of care. Please let me know if there are questions or concerns regarding this plan of care. Physician Signature: Date:
--- NOTE | 2024-03-08 11:01 | HP.OTEVAL_ITS ---
Patient's Visit Information Visit Information Visit Information: LINK MAYER is a 64 year old F, referred to Occupational Therapy by Dr. Jim Hough MD, with a diagnosis of fracture of R triquetrum. Date of Evaluation: 03/08/24 Occupational Therapist: Yuliya Benito Subjective Subjective: Patient arrived after PT for OT evaluation. Patient fell Jan 20 and fractured L knee cap and R triquetrium in right hand. Patient had cast r emoved 03/05/24. Patient is right hand dominant. She is 6 weeks and 5 days post injury. Patient reports she has a blue and green band at home that can be used for therapy. ADLs Comments: trouble with gripping and using the hand able to complete basic self-care without help she is not driving yet she is not working, and will not return until completely cleared Pain R hand: Current Pain Intensity: 3 ROM Shoulder: WNL Elbow: WNL Wrist: L wrist WNL; R 20/15 CMC: R 15 MP: R 30 MP: R index: 20/0, middle: 30/0, ring 15/0, little 0/0 PIP: R index 75/0, middle 65/0, ring 75/0, little 50/0 DIP: R index 45/0, middle 55/0, ring 45/0, little. 40/0 ROM Comments: R hand able to oppose all digits Strength Drug Counselor: L 71, 66, 75 Lateral Pinch: L 16 Tripod Pinch: L 15 Tip-to-Tip Pinch: L 10 Edema Wrist: R wrist 9 cm Other: R MCP 21 cm Sensation Sensation Comments: sensation intact Quick DASH-Disab of Arm,Shoulder& Hand Quick DASH Score: 77.2725 Goals Goal:: Patient's right engineering agent strength will be within 15 pounds of L (unaffected hand) by d/c. Goal:: Patient will demonstrate improved ROM to R hand with composite finger ROM within 20 degrees of L (unaffected) hand. Goal:: Patient will report reduction of pain to improve ADL participation with reported pain <2 by d/c. Goal:: Patient will improve indep with ADL's with a quick dash score of 65 or less by d/c. Goal:: Patient will be indep with HEP and splint wear schedule. Rehabilitation General Assessment: Patient arrived 6 weeks, 5 days post fracture to right hand triquetrum carpal bone. Patient's cast was removed on Friday03/05/24. She has been icing it and elevating it at home but reports the pain is impacting her sleep. She has begun gentle AROM at home as well. She presents with decreased range of motion, edema, pain, and stiffness in the right hand and wrist. A custom volar resting hand splint was fabricated for overnight and daytime wear between exercises or with daytime activity using her upper body. This is also to help with some of the hand pain she is experiencing. Educated patient to bring in the wrist brace she had been wearing (she purchased this to help with pain she reported). Plan to progress with stretching then strengthening per protocol for non-surgical intervention of carpal fx. Patient agreeable. Rehabilitation Potential: Good Anticipated Interventions Anticipated Interventions: A/AAROM/PROM, Strengthening, Edema Control, Triggerpoint Release, Desensitization, Modalities, Orthoses, Joint Protection/Energy Conservation, Fine Motor Coord/Leon and Home Program Visit Plan Frequency: 1-2x /Week Duration: 2 Months General Plan: 1-2x/week for 8 weeks to work on stretching, strengthening, modalities, desensitizing, reducing edema, providing home program, and managing orthoses TEXT: Thank you for the opportunity to evaluate your patient. For Medicare and Medicare HMO plans, please review the plan of care and approve it. It will need to be FAXED BACK to us at [phone] for Medicare purposes. Please let me know if there are questions or concerns regarding this plan of care. Physician Signature: Date:
--- NOTE | 2024-03-22 09:00 | HP.PTREVAL ---
Re-Evaluation Intro: Dr. Jim Hough MD, It has been my pleasure to treat LINK MAYER over the last 10 visits for Fx of patella LEFT. Please see the progress note below for an update on the physical therapy plan of care! Subjective Subjective: Pt reports that she is getting better. She has about 3-4/10 pain today. She has a lot of achiness. She does not go back to the Dr. The achiness is not getting any better and is on the inside of the knee below the patella. She is not using the crutch anymore. She has to stand for a little before she takes off. She is better after she loosens up. There is still swelling present. Stairs bothers her. She does not have the strength and the pressure of driving through the leg. Objective Objective/Function: ROM was L knee -2 to 119 degrees L knee flexion R knee AROM 0-130) Gait: walks with decrease stride length and decrease stance time on the L LE Stairs: up and down recip but hard to ascend the step due to strength/discomfort on the L and decrease control descending the step. Plan Plan Plan: Add Bike (no arms), Stair activities (descend steps), continue ROM and strength. 2x/week for 8 weeks for L knee AROM flexion/ext (no restrictions), strengthening of the L hip and knee, and ankle, progressive WB with brace locked into extension, gait training with brace locked in extension with HEP Balance/Gait/Functional tests Balance/Special Test Scores Lower Extremity Functional Score: 30 Goals Goals Goal 1:: I HEP Goal Time Frame: 6-8 Weeks Goal Progress: Goal Met Goal 2:: Increase L knee AROM to equal that of the R (at the time of the eval pt ROM was L knee 0-45 degrees L knee flexion R knee AROM 0-130) Goal Time Frame: 6-8 Weeks Goal Progress: Progressing Goal 3:: Be able to walk with no antalgic gait Goal Time Frame: 6-8 Weeks Goal Progress: Progressing Goal 4:: Be able to go up and down the steps recip with 1 hand rail if needed with ease and no hesitation Goal Progress: Progressing Anticipated Interventions Anticipated Interventions Patient/Client Instruction: Educate patient on: Condition and Plan of Care For the Purpose of:: To decrease pain, To increase ROM, To improve nutrient delivery to tissue, To improve muscle performance and motor function, To improve ability to perform ADL's, To increase tolerance to activity/condition/position, To improve performance and independence with ADL's, To decrease level of supervision to perform tasks, To improve ability of physical actions for home/community/work/leisure, To improve gait and locomotor functions, To improve health of tissue, To decrease soft tissue restriction, To increase flexibility/ROM, To improve endurance and To improve safety with gait Therapeutic Exercise to Include: Strength training, Endurance training, Body mechanics, Postural training, Flexibilty training, Gait and locomotor training, Passive ROM and Active ROM For the Purpose of:: To decrease pain, To increase ROM, To improve nutrient delivery to tissue, To increase oxygenation perfusion, To improve muscle performance and motor function, To improve ability to perform ADL's, To increase tolerance to activity/condition/position, To improve performance and independence with ADL's, To decrease level of supervision to perform tasks, To improve ability of physical actions for home/community/work/leisure, To improve gait and locomotor functions, To improve health of tissue, To decrease soft tissue restriction, To increase flexibility/ROM, To improve endurance and To improve balance Functional Training to Include: Gait training For the Purpose of:: To improve gait and locomotor functions Re-Evaluation Ending Re-evaluation ending: Please do not hesitate to contact me at [phone] by phone or if you have questions or concerns regarding this new plan of care! Sincerely, DIMITRIS Coto
--- NOTE | 2024-04-15 08:46 | HP.OTDCSUM_ITS ---
Discharge Summary D/C Summary: It has been my pleasure to treat LINK MAYER under orders from Dr. Jim Hough MD, for the diagnosis of fracture of R triquetrum for a total of 12 visit(s). Please see the following information for a summary of their discharge status. 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 (progressing) Goal:: Patient will demonstrate improved ROM to R hand with composite finger ROM within 20 degrees of L (unaffected) hand. (goal met) Goal:: Patient will report reduction of pain to improve ADL participation with reported pain <2 by d/c. (goal met) Goal:: Patient will improve indep with ADL's with a quick dash score of 65 or less by d/c. (goal met) Goal:: Patient will be indep with HEP and splint wear schedule. (goal met) Plan Plan: cont with ROM functional ROM may use k-tape to support compression as needed D/C Information Discharge Comments: pt is returning to work. pt states she agrees with d.c and will continue with HEP to continue to make gains toward strength return. pt demo understanding of POC & HEP and agrees to D/c d/c sentence: If there are questions or concerns regarding this patient's occupational therapy, please fell free to call me at [phone]. Thank you for the referral of this patient. Sincerely, Evelia Torres, OTR/L, CHT
== END 2024-04-15 19:00 | disposition home or self-care (01) ==
LOC: PT 08:30
PROVIDERS: PCP Internal Medicine; Referring Provider Orthopaedic Surgery Sports Medicine; Visit Provider Orthopaedic Surgery Sports Medicine
DX: S82.009D Unspecified fracture of unspecified patella, subsequent encounter for closed fracture with routine healing (principal)
CPT/HCPCS: 97016; 97035; 97110; 97140; 97161; 97166; 97530; 97760

== ENCOUNTER → 2024-06-11 | Outpatient (CLI) | payer OTHER, MEDICARE, BC, SELFPAY ==
[2024-06-11 09:38] LABS: Hemoglobin A1c 10.3 % (<=5.6)
[2024-06-11 09:51] LABS: ALB/GLOB Ratio 1.1 RATIO (0.9-2.4); AST(SGOT) 54 U/L (<=31); Alanine Aminotransfer ALT/SGPT 84 U/L (<=34); Albumin, Serum 4.2 g/dL (3.4-4.8); Alkaline Phosphatase 69 U/L (35-104); Anion Gap 13 (5-15); BUN 18 mg/dL (4-19); BUN/Creat Ratio 17.4 RATIO (10-20); Calcium,Total 9.4 mg/dL (7.6-11.0); Carbon Dioxide 21.9 mmol/L (21.0-32.0); Chloride 100 mmol/L (98-108); Creatinine, Serum 1.02 mg/dL (0.70-1.20); EST Glomerular Filtration Rate 61 (>60); Ferritin 501 ng/mL (22-378); Globulin 3.9 g/dL (2.2-4.2); Glucose 231 mg/dL (70-99); Iron 50 ug/dL (50-170); Iron Binding Capacity,Total 277 ug/dL (250-450); Iron Binding Capacity,Unsat 227 ug/dL (228-428); Magnesium 2.3 mg/dL (1.5-2.2); Potassium 4.5 mmol/L (3.3-5.1); Protein, Total 8.1 g/dL (5.9-8.4); Sodium Level 135 mmol/L (133-145); Total Bilirubin 0.47 mg/dL (0.00-1.30); Vitamin B12 1351 pg/mL (180-914)
[2024-06-11 10:01] LABS: Absolute Lymphocyte Count 2.22 X10^3/uL (0.83-4.51); Basophil# 0.03 X10^3/uL; Basophil% 0.5 % (0-1); Eosinophil# 0.04 X10^3/uL; Eosinophils% 0.6 % (0-5); Hematocrit 44.7 % (37-47); Hemoglobin 14.5 g/dL (12.0-15.0); Lymphocyte # 2.22 X10^3/ul (0.83-4.51); Lymphocyte % 34.1 % (19-41); Mean Corp Hgb Conc 32.4 g/dL (32-36); Mean Corpuscular Hgb 29.7 pg (27.0-32.0); Mean Corpuscular Volume 91.4 fL (81-99); Mean Platelet Vol. 9.9 fl (6.2-12.0); Monocyte% 18.4 % (0-10); NRBC Flagged by Analyzer 0 % (0-5); Neutrophil # 2.99 X10^3/uL (2.7-7.7); Neutrophil % 45.9 % (47-70); Platelet Count 278 K/mm3 (150-450); RBC Distribution Width CV 13.7 % (11.6-14.6); RBC Distribution Width SD 46.5 fl (35.1-43.9); Red Blood Count 4.89 M/mm3 (4.2-5.4); White Blood Count 6.5 K/mm3 (4.4-11.0)
== END | disposition home or self-care (01) ==
PROVIDERS: PCP Internal Medicine; Referring Provider Physician Assistant Medical; Visit Provider Physician Assistant Medical
DX: E11.59 Type 2 diabetes mellitus with other circulatory complications (principal); E11.65 Type 2 diabetes mellitus with hyperglycemia; I15.2 Hypertension secondary to endocrine disorders; R79.89 Other specified abnormal findings of blood chemistry
CPT/HCPCS: 36415; 80053; 82607; 82728; 83036; 83540; 83550; 83735; 85025

== ENCOUNTER → 2024-09-23 | Outpatient (CLI) | payer OTHER, MEDICARE, BC, SELFPAY ==
[2024-09-23 10:40] LABS: Ferritin 314 ng/mL (22-378); Iron 78 ug/dL (50-170); Iron Binding Capacity,Total 294 ug/dL (250-450); Iron Binding Capacity,Unsat 216 ug/dL (228-428); Magnesium 2.1 mg/dL (1.5-2.2); Vitamin B12 1135 pg/mL (180-914)
== END | disposition home or self-care (01) ==
LOC: LAB 07:33
PROVIDERS: PCP Internal Medicine; Referring Provider Physician Assistant Medical; Visit Provider Physician Assistant Medical
DX: E11.65 Type 2 diabetes mellitus with hyperglycemia (principal); E78.2 Mixed hyperlipidemia; R79.89 Other specified abnormal findings of blood chemistry; E83.41 Hypermagnesemia
CPT/HCPCS: 36415; 82607; 82728; 83036; 83540; 83550; 83735